=== PATIENT | female | born 1945 | race Caucasian/White ===

== ENCOUNTER 2016-03-27 17:49 | Inpatient (IN) | payer OTHER ==
[~2016-03-27] VITALS: Ht 162.6 cm; Wt 50.8 kg
--- NOTE | ~2016-03-27 | HC ---
[facility] [place] [address] CONSULTATION Name: HATTIE STRAUSS Room #: 450-[facility] IN M.R.#: [id number] Admission: 03/27/16 Attend Phys: Beck Hamm Discharge: 04/02/16 Date of : 43 Report #: [id number] THIS REPORT FOR: //name// CC: Trang Hamm DATE OF SERVICE: 03/28/2016 REASON FOR CONSULTATION: Exacerbation of COPD. IMPRESSION: 1. Acute on chronic respiratory failure. 2. Hypercapnic respiratory failure. 3. Tobacco abuse. 4. Elevated troponin. 5. Lactic acidosis. 6. Normocytic anemia. 7. Hyperglycemia. 8. Hyponatremia. 9. History of nausea, vomiting. PLAN: BiPAP, aerosol therapy, antibiotics, V/Q scan and echocardiogram, Cardiology consult per primary. HISTORY OF PRESENT ILLNESS: A 70-year-old female, saw Dr. Nicole on February 18 with severe COPD and solitary pulmonary nodule per note. At that time, FEV1 was 0.92, 39% predicted, FVC 1.8, 60% predicted. The patient relates she called Dr. Nicole and was prescribed a Z-GLADYS and prednisone, not improved. She relates she called the office yesterday and was told to go to the ER. She was transferred here and ordered to see him. She described transient chest tightness, cough, and no sputum production. Many family members were ill over the holidays. HOME MEDICATIONS: Include Mucinex, Biotin, multivitamin, aspirin, cyanocobalamin, zinc, potassium, tramadol, DuoNeb, Singulair, Reclast, Advil, folic acid, niacin, omeprazole, Ventolin. PAST MEDICAL HISTORY: COPD, urinary incontinence, hematuria, low back pain, osteoporosis, emphysema, solitary pulmonary nodule. PAST SURGICAL HISTORY: Include hysterectomy, cataract, laparoscopic cholecystectomy, appendectomy. FAMILY HISTORY: Heart disease, diabetes, throat cancer, lung cancer. SOCIAL HISTORY: Positive tobacco for greater than 40 years ETOH, negative [facility] [address] [place] [address] CONSULTATION Name: HATTIE STRAUSS ARINA Room #: [address] [place] [address] IN M.R.#: [id number] Admission: 03/27/16 Attend Phys: Beck Hamm Discharge: 04/02/16 Date of : 43 Report #: [id number] drugs of abuse. ALLERGIES: SULFA, FLU VACCINE, LATEX, GLUTEN, BUDESONIDE. REVIEW OF SYSTEMS: Positive for shortness of breath, cough. No edema. Not tolerating oxygen. Positive nausea, vomiting, GERD. PHYSICAL EXAMINATION: VITAL SIGNS: Temp 97.4, pulse 77, respirations 17, and blood pressure 136/73. EYES: Negative icterus. NECK: Trachea midline. LUNGS: Showed decreased breath sounds, wheeze bilaterally. CARDIOVASCULAR: Regular. Positive chest shin tenderness. ABDOMEN: Bowel sounds present. EXTREMITIES: Shows no cyanosis or edema. LABORATORY DATA: A pH 7.413, pCO2 of 43, pO2 of 94 on 3 L. Lactate 2.3. White count 8.8, hemoglobin 11.2, platelets 344. Chest x-ray showed possible fibrosis with bilateral infiltrates. BUN 13, creatinine 1.6, glucose 130. We will do CT chest once able to lie flat. V/Q showed abnormal ventilatory study. We will follow closely with you. <ELECTRONICALLY SIGNED> By: Vincenzo Gonzalez MD 04/03/16 1832 1710 0436 Vincenzo Gonzalez MD /nt
--- NOTE | ~2016-03-27 | 2DMMODE ---
[facility] [employer] [place] [address] 2 D/M-MODE ECHOCARDIOGRAM Name: HATTIE STRAUSS Room #: 450-P [facility] IN M.R.#: [id number] Admission: 03/27/16 Attend Phys: Beck Hummel Discharge: Date of : 43 Date of Service: 03/28/16 1048 Report #: [id number] THIS REPORT FOR: //name// Transthoracic Echocardiography Ordering physician: Vincenzo Gonzalez Referring physician: Vincenzo Gonzalez Janet Molding Machine Setter: LUIS Wilkerson Indications/History: COPD, Tobacco abuse, SOA, Pulmonary HTN. BP: 136 / HR: 82bpm Height: 64in Weight: 111.8lb 73 Study data: M-mode, complete 2D, complete spectral Doppler, and color Doppler. Location: Bedside. Routine. Image quality was fair. The study was technically limited due to restricted patient mobility. 2D measurements Normal Normal LVID ED 32.3mm 36-57 IVS ED 9.3mm 6-11 LVID ES 20.2mm 23-40 LVPW ED 8.6mm 6-11 LA volume 14ml/m2 16-28 AoRoot diam 26.5mm 21-37 index ED LVOT diameter 17mm 18-23 Findings: Left ventricle: The cavity size was normal. Wall thickness was normal. Systolic function was normal. The estimated ejection fraction was in the range of 60% to 65%. Wall motion was normal. Right ventricle: The cavity size was normal. Systolic function was normal. Right atrium: The atrium was normal in size. Left atrium: The atrium was normal in size. Volume index: 14ml/m2 (S). Aortic valve: Trileaflet; mildly calcified leaflets. Doppler: There was no stenosis. No regurgitation. [facility] [address] [place] [address] 2 D/M-MODE ECHOCARDIOGRAM Name: HATTIE STRAUSS Room #: [address] [place] [address] IN Jocelyn.R.#: [id number] Admission: 03/27/16 Attend Phys: Beck Hummel Discharge: Date of : 43 Date of Service: 03/28/16 1048 Report #: [id number] Peak velocity: 116.6cm/s (S). Mitral valve: Structurally normal valve. Doppler: There was no evidence for stenosis. No regurgitation. Peak E-wave velocity: 83.1cm/s. Peak gradient: 2.8mm Hg (D). Peak A-wave velocity: 91.8cm/s. Tricuspid valve: Structurally normal valve. Doppler: There was no evidence for stenosis. Trivial regurgitation. Regurgitant peak velocity: 251.4cm/s. Peak RV-RA gradient: 25mm Hg (S). Pulmonic valve: Structurally normal valve. Doppler: There was no evidence for stenosis. No regurgitation. Pericardium: There was no pericardial effusion. Aorta: Aortic root: The aortic root was normal in size. Pulmonary artery: Systolic pressure was estimated to be 30mm Hg. Diastolic function: Doppler parameters are consistent with abnormal left ventricular relaxation (grade 1 diastolic dysfunction). Systemic veins: Inferior vena cava: The vessel was normal in size; the respirophasic diameter changes were in the normal range (= 50%). Conclusions 1. Left ventricle: Systolic function was normal. The estimated ejection fraction was in the range of 60% to 65%. 2. Aortic valve: Trileaflet; mildly calcified leaflets. <ELECTRONICALLY SIGNED> By: Eliel Colindres MD, [facility] 03/28/16 1349 1048 1349 Eliel Colindres MD, FACC /toney
--- NOTE | ~2016-03-27 | H ---
[facility] [place] [address] HISTORY AND PHYSICAL Name: HATTIE STRAUSS Room #: 450-P [facility] IN M.R.#: [id number] Admission: 03/27/16 Attend Phys: Beck Hamm Discharge: 04/02/16 Date of : 43 Report #: [id number] THIS REPORT FOR: //name// CC: Trang Garg DATE OF SERVICE: 03/27/2016 ATTENDING PHYSICIAN: Alex Garg M.D. PRIMARY CARE PHYSICIAN: Trang Strong M.D. CHIEF COMPLAINT: Respiratory failure. HISTORY OF PRESENT ILLNESS: The patient is a 70-year-old female who has a history of COPD. She normally wears 3-4 liters at home p.r.n. She takes it off when she smokes, but says she does not tolerating wearing it at night, so she ends up having it off more than on throughout the day. She initially presented to [facility] on the evening of March 26 in respiratory distress. She apparently had oxygen saturations in the mid 80s. She had been having some cough and cold like symptoms for a few days. She was feeling congested. Her cough had been nonproductive. She was extremely short of breath and was placed on BiPAP. Initially, she had been prescribed a Z-Josém Iguel and prednisone and had failed these treatments. At [place], she received IV antibiotics and IV steroids and breathing treatments. Her chest x-ray was negative. She had requested to the staff that she would like to be transferred to [facility] where she can be seen by her primary adult basic studies teacher. She has never required intubation before. She does have some associated chest pain. She describes it as a tightness in her chest that is worse with coughing and deep breathing. She was exposed to some sick contacts over [place] in multiple family members. During the transfer to [facility], she was off BiPAP. She is tachypneic at this time and only able to speak in one-word sentences. PAST MEDICAL HISTORY: COPD, emphysema, celiac disease, osteoporosis and chronic back pain. PAST SURGICAL HISTORY: Cataract repair, hysterectomy, colon resection, appendectomy, cholecystectomy, cystocele and rectocele repair and cyst removal. ALLERGIES: IODINE CONTRAST CAUSES hives. She says she is able to have CTs done with premedications. She is also allergic to SULFA AND budesonide. HOME MEDICATIONS: DuoNebs q.i.d., Ventolin inhaler p.r.n., aspirin 81 mg daily, Motrin 600 mg q.8 hours p.r.n., Percocet 3/325 one tab q. 4 hours p.r.n., calcium with vitamin D 1 tab daily, potassium gluconate 500 mg daily, Zinc [address] [address] HISTORY AND PHYSICAL Name: HATTIE STRAUSS Room #: [facility] IN M.R.#: [id number] Admission: 03/27/16 Attend Phys: Beck Hamm Discharge: 04/02/16 Date of : 43 Report #: [id number] daily, vitamin B12 every 2 weeks, folic acid daily, biotin daily, multivitamin daily, Carafate 1 gram a.c. and at bedtime, omeprazole 20 mg daily. Most recently she had been on a Z-José Miguel as well as oral prednisone. She normally does not require daily steroids. SOCIAL HISTORY: The patient has been cutting back on her smoking. She is down to 1-2 cigarettes per day, previously she was smoking about a pack a week since 1974. She is exposed to a large amount of secondhand smoke in the home currently as her spouse still smokes up to 2 packs of cigarettes per day in the home. She denies any drugs or alcohol use. She ambulates independently. FAMILY HISTORY: Her mother is alive with a history of heart disease. Her father from heart disease. REVIEW OF SYSTEMS: The patient states that a few months ago she started having recurrent episodes of nausea with vomiting. She does feel that after eating at times, she gets really bloated and distended. She was started on Carafate and omeprazole. She states that they do seem to help. She has not had a prior EGD. All other 12-point review of systems was reviewed with the patient, otherwise negative unless stated in the HPI. PHYSICAL EXAMINATION: GENERAL: The patient is an alert female in mild respiratory distress. VITAL SIGNS: Temperature is 36.3, heart rate 99, respirations 28, blood pressure is 147/58 and oxygen 93% on 4 liters O2. HEENT: PERRLA. Sclerae are nonicteric. Oral mucosa is pink and moist. NECK: Supple, no JVD noted. CARDIOVASCULAR: Normal S1 and S2. No murmurs, rubs or gallops. RESPIRATORY: Breath sounds, she does have extensive expiratory wheezing and rhonchi with rales bilaterally. Breathing is labored. She is tachypneic. She is only able to speak in one-word sentences. She does have a very loose, but nonproductive cough which is harsh. ABDOMEN: Soft. She has mild tenderness in the epigastric and right upper quadrant areas. Bowel sounds are hypoactive. VASCULAR: No edema noted. Pedal pulses are 2+. NEUROLOGIC: The patient is alert and oriented x 3. Speech is clear. She is moving all extremities equally. No focal weakness noted. LABORATORY DATA AND DIAGNOSTICS: Blood work done today at [place] shows a WBC of 5.7, hemoglobin 12 and platelets 409. Sodium 136, potassium 4.0, BUN 13, creatinine 0.7 and glucose is 152. LFTs are within normal limits. EKG was showing sinus rhythm. Chest x-ray is negative. Influenza was negative. ASSESSMENT AND PLAN: 1. Qbzht-bt-qcmnwmg respiratory failure. The patient had been on BiPAP at [place]. We will check an ABG since she has been off the BiPAP during the [facility] [place] [address] HISTORY AND PHYSICAL Name: HATTIE STRAUSS ARINA Room #: [address] [place] [address] IN M.R.#: [id number] Admission: 03/27/16 Attend Phys: Beck Hamm Discharge: 04/02/16 Date of : 43 Report #: [id number] transfer, and then since her breathing is still labored, we will resume BiPAP. Pulmonary is consulted. Continue with IV steroids and scheduled breathing treatments. We will add mucolytics and Tussionex. We will continue with empiric antibiotics. She is currently afebrile without leukocytosis. We will try to obtain a sputum culture and a respiratory viral panel. 2. Ongoing tobacco abuse. The patient says she is cutting back. She has been advised to quit. She denies a need for a nicotine patch. 3. Recent nausea, vomiting and abdominal bloated. We will resume Carafate and PPI as at home. If her symptoms persist, we may eventually need to have GI evaluate as she says she has not yet been to see a museum assistant. She will likely not be able to have any EGD done until her breathing status improve. 4. Deep vein thrombosis prophylaxis. Start Lovenox. We will continue to follow the patient closely throughout the hospitalization and make changes based on clinical status. <ELECTRONICALLY SIGNED> By: EVERETT Weaver 04/04/16 0646 0343 0511 EVERETT Weaver /nt
--- NOTE | ~2016-03-27 | EKG ---
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 04/01/16 0804 1216 1216 Nathanael Aaron MD, FACC /EPI
[~2016-03-27 17:49] MED LIST: ASPIRIN81 M2 PO; B12INJ IM; BIOTIN PO; BIOTIN2500 MCG PO; CALCIUM 500+D1 EAC2 PO; CULTURELLE1 EACH PO; FOLIC ACID 40400 MC1 PO; FOLIC ACID PO; GLUCOSAMINE &1 EAC1 PO; HYDROCODON-ACE1 EAC5 PO; IBUPROFEN 600600 M1 PO; MULTI VITAMIN1 EACH PO; NORCO 10-325 T1 EACH PO; POTASSIUM GLUC500 MG PO; POTASSIUM OTC PO; SENNA PO; SYMBICORT160 MCG/4. INH; VENTOLIN HFA INH8 GM INH; VITAMINE B12 SUBQ; ZINC50 M1 PO; ZOFRAN ODT8 MG PO
[2016-03-27 19:31] VITALS: BP 147/58
[2016-03-27] MEDS ORDERED: DUONEB 2.5-0.5 M3 ML INH (20:24)
[2016-03-27] MEDS ORDERED: CARAFATE1 GM (20:24)
[2016-03-27 23:20] LABS: ABG SAMPLE TYPE ARTERIAL; LACTATE 2.27 mmol/L (0.5-2.0); O2(CT) 17.8 mL/dL (15.0-23.0); O2Hb 96.7 % (92.0-98.0); PCO2 43.2 mmHg (35.0-45.0); PO2 94.3 mmHg (80.0-100.0); pH 7.413 (7.360-7.450); sO2 97.3 % (92.0-98.0); tCO2 28.3 mmol/L (24.0-30.0)
[2016-03-27 23:21] LABS: STICK SITE RRA
[2016-03-28 00:04] VITALS: BP 128/69
[2016-03-28 05:27] LABS: HEMATOCRIT 33.9 % (37.0-47.0); HEMOGLOBIN 11.2 gm/dL (12.0-15.0); MCH 26.9 pg (26.0-34.0); MCV 81.5 fL (80.0-100.0); RBC 4.16 mil/uL (4.20-5.00); RDW 16.7 % (10.5-14.5); WBC 8.8 thou/uL (4.0-11.0)
[2016-03-28 05:51] LABS: ALBUMIN 3.4 g/dL (3.4-5.0); CALCIUM 8.8 mg/dL (8.5-10.1); CREATININE 0.6 mg/dL (0.6-1.3); MAGNESIUM 2.2 mg/dL (1.8-2.4); POTASSIUM 4.8 mmol/L (3.5-5.1); TOTAL BILIRUBIN 0.2 mg/dL (<0.1-1.0); TOTAL PROTEIN 6.6 g/dL (6.4-8.2)
[2016-03-28 06:20] LABS: TROPONIN-I 0.19 ng/mL (<0.04-0.07)
[2016-03-28 07:06] VITALS: BP 136/73
[2016-03-28 11:27] VITALS: BP 129/69
[2016-03-28 12:12] LABS: ABG SAMPLE TYPE ARTERIAL; BE(vivo) 3.7 mmol/L (-2 to +3); HCO3 29.3 mmol/L (22.0-26.0); LACTATE 2.71 mmol/L (0.5-2.0); O2(CT) 16.4 mL/dL (15.0-23.0); O2Hb 93.4 % (92.0-98.0); PCO2 48.3 mmHg (35.0-45.0); PO2 70.4 mmHg (80.0-100.0); pH 7.401 (7.360-7.450); tCO2 30.8 mmol/L (24.0-30.0)
[2016-03-28 12:13] LABS: STICK SITE L.BRACHIAL
[2016-03-28 15:15] VITALS: BP 129/76
[2016-03-28 20:00] VITALS: BP 107/65
[2016-03-29 04:40] VITALS: BP 127/72
[2016-03-29 07:10] VITALS: BP 123/71
[2016-03-29 11:11] VITALS: BP 124/72
[2016-03-29 15:20] VITALS: BP 144/79
[2016-03-29 19:08] VITALS: BP 113/63
[2016-03-30 04:56] VITALS: BP 116/51
[2016-03-30 05:43] LABS: HEMOGLOBIN 11.4 gm/dL (12.0-15.0); MCH 26.5 pg (26.0-34.0); MCHC 32.5 % (28.0-37.0); MCV 81.6 fL (80.0-100.0); RBC 4.29 mil/uL (4.20-5.00); RDW 16.8 % (10.5-14.5); WBC 8.6 thou/uL (4.0-11.0)
[2016-03-30 05:51] LABS: CALCIUM 8.3 mg/dL (8.5-10.1); CREATININE 0.6 mg/dL (0.6-1.3); POTASSIUM 4.5 mmol/L (3.5-5.1)
[2016-03-30 12:30] VITALS: BP 113/74
[2016-03-30 15:45] VITALS: BP 162/86
[2016-03-30 19:08] VITALS: BP 123/66
[2016-03-31 03:59] VITALS: BP 125/68
[2016-03-31 07:01] VITALS: BP 119/72
[2016-03-31 08:00] VITALS: BP 130/74
[2016-03-31 12:04] VITALS: BP 130/74
[2016-03-31 16:32] VITALS: BP 126/75
[2016-03-31 19:50] VITALS: BP 131/76
[2016-04-01 03:30] VITALS: BP 115/65
[2016-04-01 09:04] VITALS: BP 124/63
[2016-04-01 11:50] VITALS: BP 97/50
[2016-04-01 16:19] VITALS: BP 131/61
[2016-04-01 19:46] VITALS: BP 125/54
[2016-04-01 22:06] LABS: INFLUENZA B Negative (Negative); METAPNEUMOVIRUS Negative (Negative)
[2016-04-02 03:39] VITALS: BP 107/66
[2016-04-02 05:43] LABS: HEMOGLOBIN 12.5 gm/dL (12.0-15.0); MCHC 32.1 % (28.0-37.0); MCV 80.9 fL (80.0-100.0); RBC 4.81 mil/uL (4.20-5.00); RDW 16.6 % (10.5-14.5); WBC 8.4 thou/uL (4.0-11.0)
[2016-04-02 06:01] LABS: ALBUMIN 3.3 g/dL (3.4-5.0); CALCIUM 8.8 mg/dL (8.5-10.1); CREATININE 0.8 mg/dL (0.6-1.3); MAGNESIUM 2.1 mg/dL (1.8-2.4); PHOSPHORUS 4.8 mg/dL (2.5-4.9)
[2016-04-02 07:43] LABS: ABG SAMPLE TYPE ARTERIAL; BE(vivo) 4.7 mmol/L (-2 to +3); HCO3 28.8 mmol/L (22.0-26.0); LACTATE 2.82 mmol/L (0.5-2.0); O2Hb 95.1 % (92.0-98.0); PCO2 41.2 mmHg (35.0-45.0); PO2 78.3 mmHg (80.0-100.0); STICK SITE R.RADIAL; pH 7.463 (7.360-7.450); sO2 96.2 % (92.0-98.0); tCO2 30.1 mmol/L (24.0-30.0)
[2016-04-02 07:52] VITALS: BP 111/56
[2016-04-02] MEDS ORDERED: MUCINEX DM TABL1 TA1 PO (11:47)
[2016-04-02] MEDS ORDERED: PREDNISONE 10 M10 MG PO (11:49)
[2016-04-02 13:00] VITALS: BP 111/56
[2016-04-02 13:37] VITALS: BP 115/62
== END 2016-04-02 13:41 | disposition home or self-care (01) | DRG 189 ==
LOC: 4E 17:49 → 4W 19:21
PROVIDERS: Hospitalist; Internal Medicine Pulmonary Disease; Nurse Practitioner Acute Care
PROC: 5A09357 Assistance with Respiratory Ventilation, Less than 24 Consecutive Hours, Continuous Positive Airway Pressure (ICD-10-PCS; principal; 2016-03-29)
DX: J96.21 Acute and chronic respiratory failure with hypoxia (principal); J44.1 Chronic obstructive pulmonary disease with (acute) exacerbation; E87.1 Hypo-osmolality and hyponatremia; E87.2 Acidosis; J44.0 Chronic obstructive pulmonary disease with (acute) lower respiratory infection; F17.200 Nicotine dependence, unspecified, uncomplicated; J96.22 Acute and chronic respiratory failure with hypercapnia; D64.9 Anemia, unspecified; R32 Unspecified urinary incontinence; M81.0 Age-related osteoporosis without current pathological fracture; R73.9 Hyperglycemia, unspecified; G89.29 Other chronic pain; J84.10 Pulmonary fibrosis, unspecified; M54.9 Dorsalgia, unspecified; J20.9 Acute bronchitis, unspecified; Z88.2 Allergy status to sulfonamides; Z90.710 Acquired absence of both cervix and uterus; Z98.49 Cataract extraction status, unspecified eye; Z90.49 Acquired absence of other specified parts of digestive tract; Z98.890 Other specified postprocedural states; Z82.49 Family history of ischemic heart disease and other diseases of the circulatory system; Z83.3 Family history of diabetes mellitus; Z91.041 Radiographic dye allergy status; Z80.1 Family history of malignant neoplasm of trachea, bronchus and lung; Z80.8 Family history of malignant neoplasm of other organs or systems; Z88.7 Allergy status to serum and vaccine; Z91.040 Latex allergy status; Z88.8 Allergy status to other drugs, medicaments and biological substances; Z79.899 Other long term (current) drug therapy; Z79.82 Long term (current) use of aspirin
CPT/HCPCS: 10045

== ENCOUNTER 2019-06-07 13:35 | Inpatient (IN) | payer OTHER ==
[~2019-06-07] VITALS: Ht 162.6 cm; Wt 58.9 kg
[~2019-06-07 13:35] MED LIST changes: +CARAFATE1 GM; +DUONEB 2.5-0.5 M3 ML INH; +MUCINEX DM TABL1 TA1 PO; +PREDNISONE 10 M10 MG PO
[2019-06-07 22:14] VITALS: BP 145/76
[2019-06-07 22:15] VITALS: BP 148/83
[2019-06-07 22:30] VITALS: BP 148/81
[2019-06-07 22:45] VITALS: BP 126/74
[2019-06-07 22:45] LABS: BE(vivo) 1.4 mmol/L (-2 to +3); PCO2 36.3 mmHg (35.0-45.0); PO2 89.6 mmHg (80.0-100.0); pH 7.456 (7.360-7.450); sO2 97.3 % (92.0-98.0)
[2019-06-07 23:00] VITALS: BP 136/108
[2019-06-08] VITALS (21 sets, daily range): BP systolic 108–170; BP diastolic 47–93
--- NOTE | 2019-06-08 02:10 | NUR ---
RECEIVED PT DIRECT ADMIT TO ICU 243. PT TRANSPORTED VIA EMS, ON 6LNC. 02SAT 94. PT STILL FEELS SOA, USING ACCESSORY MUSCLES TO BREATH. CONGESTED COUGH, NOT PRODUCTIVE. PLACED ON OPTIFLOW, ABGS DONE AND CALLED TO DR ARGUELLES. PT STATES BREATHING IS MORE COMFORTABLE NOW. LS-WHEEZES, AND DIMINISHED ASHA LT LOBE. NOTIFIED MANAGER STONE OF DIRECT ADMISSION, AWAITING ORDERS
[2019-06-08] MEDS ORDERED: CARAFATE 1 GM TA1 GM PO (03:12)
[2019-06-08] MEDS ORDERED: FOLIC ACID1 MG PO (03:15)
[2019-06-08] MEDS ORDERED: NIACIN 500 MG500 M1 PO (03:18)
[2019-06-08] MEDS ORDERED: ZINC50 MG PO (03:19)
[2019-06-08] MEDS ORDERED: OMEPRAZOLE 20 M20 M1 PO (03:19)
[2019-06-08] MEDS ORDERED: TESSALON PERLE100 M1 PO (03:20)
[2019-06-08] MEDS ORDERED: BEVESPI AEROS10.7 GM PO (03:21)
[2019-06-08] MEDS ORDERED: VENTOLIN HFA 1818 GM INH (03:23)
[2019-06-08 04:36] LABS: HEMATOCRIT 36.9 % (37.0-47.0); HEMOGLOBIN 11.9 gm/dL (12.0-15.0); MCH 28.4 pg (26.0-34.0); MCHC 32.2 g/dL (28.0-37.0); MCV 88.2 fL (80.0-100.0); RBC 4.19 mil/uL (4.20-5.00); RDW 15.8 % (10.5-14.5); WBC 13.9 thou/uL (4.0-11.0)
[2019-06-08 04:46] LABS: ALBUMIN 3.1 g/dL (3.4-5.0); CALCIUM 8.4 mg/dL (8.5-10.1); CREATININE 0.8 mg/dL (0.6-1.0); POTASSIUM 4.4 mmol/L (3.5-5.1); TOTAL BILIRUBIN 0.3 mg/dL (<0.1-1.0); TOTAL PROTEIN 6.4 g/dL (6.4-8.2)
--- NOTE | 2019-06-08 06:42 | NUR ---
RECIEVED REPORT FROM FABI PAZ. PT AOX4. VSS. AFEBRILE. ON 45L AND 50% FIO2 OPTIFLOW, TOLERATING OXYGEN. NEGATIVE FOR FLU. MRSA SWAB SENT TO LAB. UP WITH MINIMAL ASSIST TO BSC. WILL CONTINUE TO MONITOR.
--- NOTE | 2019-06-08 10:45 | NUR ---
VASCULAR ACCESS CONSULTED FOR PICC DUE TO MULTIPLE ABX AND POOR PIV ACCESS. PT'S LABS,MEDS,HISTORY,ORDER AND CONSENT VERIFIED. DISCUSSED BENEFITS AND RISKS OF PICC WITH PT AND SPOUSE,VERBALIZED UNDERSTANDING. LUNA ENGLISH WAS WIDELY PATENT WITH USG. 4FR DL POWER PICC REIMMED TO 39CM INSERTED TO 3CM EXTERNAL. STAT CXR ORDERED. PT TOLERATED WELL.
--- NOTE | 2019-06-08 10:47 | NUR ---
PICC LINE INSERTED, X-RAY DONE AND AWAITING PLACEMENT TO UTILIZE LINE. BEDSIDE CARDIAC ECHO IN PROGRESS.
--- NOTE | 2019-06-08 10:53 | NUR ---
CXR CONFIRMED PLACEMENT IN LOWER SVC, PICC RELEASED FOR IMMEDIATE USE PER PROTOCOL TO GRACE PAZ
--- NOTE | 2019-06-08 12:14 | NUR ---
Case opened to follow for dc planning. Chart reviewed and discussed with the care team. Pt is currently in ICU on highflow O2 due to acute hypoxic resp failure/COPD exac. Diesel Inspector visited with the pt and her spouse Mauro who is at bedside. The pt indicates that they live in an one story home with a ramp about 5 miles outside of [place], [place]. She normally uses home o2 per [employer] for noc use and occasional PRN use at 2litersnc. She is indep with gait and adl's as well as iadl's. Her pcp is Dr. Zakia Malagon in [place]. She was transfered from [facility] due to worsening pulm status. She has been there approx one week. They are familiar with hh and receptive if needed at dc. Cm role introduced. PT and OT evals are pending. Will follow along for possible hh referral at dc.
--- NOTE | 2019-06-08 14:48 | 2DMMODE ---
[facility] [place] [address] 2 D/M-MODE ECHOCARDIOGRAM Name: HATTIE STRAUSS ARINA Room #: 243-P ADM IN M.R.#: [id number] Admission: 06/07/19 Attend Phys: Jerome Gomez MD Discharge: Date of : 43 Report #: [id number] THIS REPORT FOR: cc: Zakia Malagon Elizabeth DO Lundgren, Craig H. MD [facility] ~ APPROVED REPORT Study performed: 06/08/2019 10:44:59 EXAM: Comprehensive 2D, Doppler, and color-flow Echocardiogram Patient Location: ICU Room #: 243 Status: routine BSA: 1.60 HR: 83 bpm BP: 146/77 mmHg Rhythm: NSR Other Information Study Quality: Adequate Indications COPD Dyspnea 2D Dimensions RVDd: 29.80 mm IVC: 17.00 mm Volumes Left Atrial Volume (Systole) Single Plane 4CH: 26.40 mL Single Plane 2CH: 23.52 mL LA ESV Index: 16.00 mL/m2 Aortic Valve AoV Peak Vipul.: 1.21 m/s AO Peak Gr.: 5.82 mmHg LVOT Max P.69 mmHg LVOT Max V: 1.08 m/s Mitral Valve E/A Ratio: 0.9 MV Decel. Time: 198.62 ms MV E Max Vipul.: 0.86 m/s [facility] [address] [place] [address] 2 D/M-MODE ECHOCARDIOGRAM Name: HATTIE STRAUSS Room #: 243-P ADM IN M.R.#: [id number] Admission: 06/07/19 Attend Phys: Jerome Goemz MD Discharge: Date of : 43 Report #: [id number] A Vipul.: 0.94 m/s MV PHT: 57.60 ms IVRT: 96.89 ms Pulmonary Valve PV Peak Vipul.: 0.84 m/s PV Peak Gr.: 2.85 mmHg Pulmonary Vein P Vein S: 0.60 m/s P Vein A: 0.29 m/s P Vein D: 0.44 m/s P Vein A Dur.: 106.1 msec P Vein S/D Ratio: 1.36 Left Ventricle The left ventricle is normal size. There is normal LV segmental wall motion. There is normal left ventricular wall thickness. Left ventricular systolic function is normal. The left ventricular ejection fraction is within the normal range. LVEF is 60-65%. Mild diastolic dysfunction is present (impaired relaxation pattern). Right Ventricle The right ventricle is normal size. The right ventricular systolic function is normal. Atria The left atrium size is normal. The right atrium size is normal. Aortic Valve The aortic valve is normal in structure. No aortic regurgitation is present. There is no aortic valvular stenosis. Mitral Valve The mitral valve is normal in structure. There is no mitral valve regurgitation noted. No evidence of mitral valve stenosis. Tricuspid Valve The tricuspid valve is normal in structure. There is no tricuspid valve regurgitation noted. Pulmonic Valve The pulmonary valve is normal in structure. There is no pulmonic valvular regurgitation. Great Vessels The aortic root is normal in size. IVC is normal in size and [facility] [address] [place] [address] 2 D/M-MODE ECHOCARDIOGRAM Name: HATTIE STRAUSS Room #: [facility] IN [facility]#: [id number] Admission: 06/07/19 Attend Phys: Jerome Gomez MD Discharge: Date of : 43 Report #: [id number] collapses >50% with inspiration. Pericardium There is no pericardial effusion. <Conclusion> Left ventricular systolic function is normal. There is normal LV segmental wall motion. LVEF is 60-65%. Mild diastolic dysfunction The aortic valve is normal in structure. No aortic regurgitation or stenosis The mitral valve is normal in structure. No mitral valve regurgitation. Pulmonary artery systolic pressure could not be reliably ascertained There is no pericardial effusion. <ELECTRONICALLY SIGNED> By: Nathanael Aaron MD, [facility] 06/08/19 1446 1446 1446 Nathanael Aaron MD, FACC /INF
--- NOTE | 2019-06-08 18:14 | NUR ---
O2 weaned to 3l/high flow nasal cannula, able to speak in complete sentences. Standby assist to commode. Reassurance given to and , questions answered, verbalize understanding.
[2019-06-09] VITALS (24 sets, daily range): BP systolic 113–148; BP diastolic 64–93
--- NOTE | 2019-06-09 10:05 | NUR ---
ALERT AND ORIENTED AND DENIES PAIN. VITALS STABLE AND TOLERATING DIET W/O NAUSEA. UP TO CHAIR WITH STANDBY ASSIST. USING BSC WITHOUT DIFFICULTY. ORDERS RECEIVED TO TRANSFER TO [facility].
[2019-06-10] VITALS (7 sets, daily range): BP systolic 100–150; BP diastolic 64–92
[2019-06-10 04:35] LABS: HEMATOCRIT 35.9 % (37.0-47.0); HEMOGLOBIN 12.1 gm/dL (12.0-15.0); MCH 29.4 pg (26.0-34.0); MCHC 33.5 g/dL (28.0-37.0); MCV 87.7 fL (80.0-100.0); RBC 4.1 mil/uL (4.20-5.00); RDW 15.8 % (10.5-14.5); WBC 10.3 thou/uL (4.0-11.0)
[2019-06-10 04:44] LABS: CALCIUM 7.8 mg/dL (8.5-10.1); CREATININE 0.9 mg/dL (0.6-1.0); POTASSIUM 4.1 mmol/L (3.5-5.1)
--- NOTE | 2019-06-10 05:38 | NUR ---
PATIENT ALERT AND ORIENTED X4, PAIN CONTROLLED WITH MEDICATION. PATIENT'S OXYGEN WEANED DOWN OVER NIGHT FROM 5L TO 4L HIGHFLOW NASAL CANNULA. PATIENT TRANSFERRED TO [facility] WITH STANDBY ASSISTANCE, NO SHORTNESS OF BREATH NOTED. PLAN DISCUSSED WITH PATIENT, PATIENT PROGRESSING TOWARDS GOALS. NO SIGN OF ACUTE DISTRESS NOTED AT THIS TIME. WILL CONTINUE TO MONITOR.
--- NOTE | 2019-06-10 08:20 | NUR ---
pt up in bed, eyes open, a & o x 3, pleasant, on o2 per nasal canula. no complaints during visit. education on transition of care, ie: skilled and home health. " oh no i will not need rehab that would be to hard on my and will do hh if needed but if just get out of bed i should not need home health either. i do what to add some updates to my health care directive"/jonn. education on dpoa booklet and education that spiritual care and notarize if witnessed here. "ok thanks"/jonn.
--- NOTE | 2019-06-10 17:38 | NUR ---
PT RECEIVED TO RM 218 FROM ICU ALERT AND IN NO ACUTE DISTRESS. PT PREFERRING TO SIT UP IN THE CHAIR. STATES FEELS MUCH BETTER SINCE ADMISSION. RESP EVEN AND UNLABORED ON 4L NC. AMBULATED TO BR W/ STEADY GAIT TO VOID. CONJESTED NON-PRODUCTIVE COUGH. EATING DINNER AT PRESENT.
[2019-06-11 00:35] VITALS: BP 115/59
--- NOTE | 2019-06-11 04:24 | NUR ---
RECIEVED CARE OF THIS PATIENT AT 1900. PATIENT ALERT AND ORIENTED X4. UP WITH SBA, STEADY ON FEET BUT DOES CALL WHEN NEEDING UP. HAS NON-PRODUCTIVE CONGESTED COUGH. AT THE BEGINNING OF SHIFT LUNGS WERE DIM AT BASES AND HAD WHEEZES ON TOP. NOW THEY ARE CLER. HAS DOUBLE LUMAN PICC IN LUNA AND A PIV IN HER L HAND. C/O PAIN IN BACK OF 2. SLEPT OFF AND ON DURING NIGHT.
[2019-06-11 04:45] VITALS: BP 120/62
--- NOTE | 2019-06-11 05:02 | NUR ---
RECIEVED CARE OF THIS PATIENT AT 1900. PATIENT ALERT AND ORIENTED X4. TANACROSS. HEARS ONLY IN L EAR. REMAINS IN ISO FOR ESBL. BOTTOM RED, Z-GATERESITAD APPLIED. REMAINS ON BEDREST. IV IN RAC PATENT OF NS AND FENTANYL DRIP, WHICH KEEPS PATIENT COMFORTABLE. HAS 2 PIVS IN LFA, ON IS A SINGLE LUMEN AND ONE IS A DOUBLE. PATIENT HAS SLEPT LITTLE THIS SHIFT. DOES NOT LIKE TO LAY ON R SIDE OR BACK.
[2019-06-11 08:00] VITALS: BP 121/67
[2019-06-11 16:00] VITALS: BP 114/62
--- NOTE | 2019-06-11 16:34 | NUR ---
PT ALERT AND ORIENTED. DENIED HAVING PAIN OR DISCOMFORT. RT TREATMENT GIVEN ORDERED. NO CARDIAC OR RESPIRATORY DISTRESS NOTED. PT PROGRESSING WELL TOWARDS DISCHARGE GOAL. WILL CONTINUE TO MONITOR.
[2019-06-11 20:33] VITALS: BP 105/59
--- NOTE | 2019-06-12 03:23 | NUR ---
Patient making progress towards outcome goals. Oxygenation optimal with 2L o2 per NC. Vital signs and rhythm stable. High fall risks, fall precautions in place.
--- NOTE | 2019-06-12 03:29 | NUR ---
Fall risks adjusted to Low. Careplan updated.
[2019-06-12 04:45] VITALS: BP 133/70
[2019-06-12 08:56] VITALS: BP 113/70
[2019-06-12] MEDS ORDERED: LEVAQUIN 750 M750 MG PO (14:19)
[2019-06-12] MEDS ORDERED: MUCINEX600 MG PO (14:20)
[2019-06-12] MEDS ORDERED: PREDNISONE 10 M10 M1 PO (14:20)
[2019-06-12 15:05] VITALS: BP 113/70
--- NOTE | 2019-06-12 15:21 | NUR ---
ASSESSMENT CHARTED. PT ALERT AND ORIENTED. VSS. DENIED HAVING PAIN OR DISCOMFORT. RT TREATMENT PROVIDED ORDERED. SEEN BY DR. ARGUELLES AND CHAPARRO. ORDERS GIVEN TO DISCHARGE PT TO HOME. DISCHARGE INSTRUCTIONS GIVEN TO PT. PT VERBERLISED UNDERSTANDING. PT LEFT THE FACILITY ACCOMPANIED BY THE .
== END 2019-06-12 16:23 | disposition home or self-care (01) | DRG 177 ==
LOC: ICU 13:35 → 2N 06-10 16:30
PROVIDERS: Hospitalist; Nurse Practitioner Family; ADMIT Hospitalist
PROC: B548ZZA Ultrasonography of Superior Vena Cava, Guidance (ICD-10-PCS; principal; 2019-06-08)
PROC: 02HV33Z Insertion of Infusion Device into Superior Vena Cava, Percutaneous Approach (ICD-10-PCS; principal; 2019-06-08)
DX: J69.0 Pneumonitis due to inhalation of food and vomit (principal); J96.21 Acute and chronic respiratory failure with hypoxia; J96.22 Acute and chronic respiratory failure with hypercapnia; J44.0 Chronic obstructive pulmonary disease with (acute) lower respiratory infection; J44.1 Chronic obstructive pulmonary disease with (acute) exacerbation; J20.9 Acute bronchitis, unspecified; R91.1 Solitary pulmonary nodule; K90.0 Celiac disease; M19.90 Unspecified osteoarthritis, unspecified site; Z88.2 Allergy status to sulfonamides; Z88.8 Allergy status to other drugs, medicaments and biological substances; Z91.041 Radiographic dye allergy status; Z91.040 Latex allergy status; Z98.42 Cataract extraction status, left eye; Z98.41 Cataract extraction status, right eye; Z90.710 Acquired absence of both cervix and uterus; Z90.49 Acquired absence of other specified parts of digestive tract; Z82.49 Family history of ischemic heart disease and other diseases of the circulatory system; Z80.1 Family history of malignant neoplasm of trachea, bronchus and lung; Z80.0 Family history of malignant neoplasm of digestive organs; Z80.8 Family history of malignant neoplasm of other organs or systems; Z83.3 Family history of diabetes mellitus; Z87.891 Personal history of nicotine dependence; Z71.6 Tobacco abuse counseling; Z79.82 Long term (current) use of aspirin; Z79.899 Other long term (current) drug therapy
CPT/HCPCS: 10078; 10081; 10203; 27000

== ENCOUNTER 2019-09-22 14:44 | Inpatient (IN) | payer OTHER ==
[~2019-09-22] VITALS: Ht 162.6 cm; Wt 58.5 kg
[~2019-09-22 14:44] MED LIST changes: -AUGMENTIN 875-1 EACH PO; -DELSYM COU30 MG/5 ML PO; -IPRAT-ALBUT 0.5-3 ML INH; -PULMICORT0.5 MG/22 INH; -YUPELRI175 MCG/3 INH
[2019-09-22 14:49] VITALS: BP 101/77
[2019-09-22] MEDS ORDERED: YUPELRI175 MCG/3 INH (15:07)
[2019-09-22 15:30] LABS: BASOPHILS 0.9 % (0.0-2.0); EOSINOPHILS 2.1 % (0.0-3.0); HEMATOCRIT 39.7 % (37.0-47.0); HEMOGLOBIN 13.5 gm/dL (12.0-15.0); MCH 31.3 pg (26.0-34.0); MCHC 34.1 g/dL (28.0-37.0); MCV 91.7 fL (80.0-100.0); MONOCYTES 7.5 % (1.0-8.0); PLATELET COUNT 476 thou/uL (150-400); POLYS 70.5 % (36.0-66.0); RBC 4.33 mil/uL (4.20-5.00); WBC 7.1 thou/uL (4.0-11.0)
[2019-09-22 15:40] LABS: ANION GAP 15 mmol/L (7-16); BUN 6 mg/dL (7-18); CHLORIDE 99 mmol/L (98-107); CO2 19 mmol/L (21-32); CREATININE 0.6 mg/dL (0.6-1.0); GLUCOSE 92 mg/dL (74-106); POTASSIUM 4.6 mmol/L (3.5-5.1); SODIUM 133 mmol/L (136-145)
[2019-09-22 15:46] LABS: ALBUMIN 3.5 g/dL (3.4-5.0); DIRECT BILIRUBIN < 0.1 mg/dL (<0.1-0.2); SGOT 38 U/L (15-37); SGPT 36 U/L (30-65); TOTAL BILIRUBIN 0.3 mg/dL (0.2-1.0); TOTAL PROTEIN 7.7 g/dL (6.4-8.2)
[2019-09-22 17:09] LABS: BE(vivo) -0.9 mmol/L (-2 to +3); HCO3 22.5 mmol/L (22.0-26.0); PCO2 33.4 mmHg (35.0-45.0); PO2 95.9 mmHg (80.0-100.0); pH 7.446 (7.360-7.450); sO2 97.6 % (92.0-98.0)
[2019-09-22 18:47] VITALS: BP 132/104
[2019-09-22 19:30] VITALS: BP 133/77
[2019-09-22 19:39] VITALS: BP 122/75
[2019-09-22 23:11] VITALS: BP 123/67
--- NOTE | 2019-09-23 03:01 | NUR ---
Admission history and assessments completed. Care plan initiated.
[2019-09-23 03:18] VITALS: BP 122/69
--- NOTE | 2019-09-23 05:37 | NUR ---
Patient making progress towards outcome goals. Oxygenation optimal with 3L/NC continuous pulse ox at 95-96%. Afebrile. Vital signs and rhythm stable.. Up adlib, short of air withactivity but gait stable. Enhance precautions maintained, COVID test done 09/22/19 negative.
[2019-09-23 05:41] LABS: ABSOLUTE NEUTROPHILS 5.1 thou/uL (1.4-8.2); BASOPHILS 0.1 % (0.0-2.0); HEMATOCRIT 37.9 % (37.0-47.0); HEMOGLOBIN 12.8 gm/dL (12.0-15.0); LYMPHOCYTES 7.7 % (24.0-44.0); MCH 30.6 pg (26.0-34.0); MCHC 33.8 g/dL (28.0-37.0); MCV 90.6 fL (80.0-100.0); MONOCYTES 0.6 % (1.0-8.0); POLYS 91.6 % (36.0-66.0); RBC 4.18 mil/uL (4.20-5.00); RDW 15.6 % (10.5-14.5); WBC 5.5 thou/uL (4.0-11.0)
[2019-09-23 05:58] LABS: CALCIUM 8.6 mg/dL (8.5-10.1); CREATININE 0.7 mg/dL (0.6-1.0)
[2019-09-23 06:09] LABS: POTASSIUM 3.6 mmol/L (3.5-5.1)
[2019-09-23 06:12] LABS: PLATELET COUNT 328 thou/uL (150-400)
[2019-09-23 07:34] VITALS: BP 138/68
--- NOTE | 2019-09-23 12:02 | NUR ---
AFEBRILE. VOICING NO COMPLAINTS. ON 3L NC - SOA W/ EXERTION. VITALS STABLE. FREQUENT COUGHING FITS. C19 RESULT NEGATIVE - HOSPITALIST NOTIFIED. ENHANCED PRECAUTIONS IN PLACE.
--- NOTE | 2019-09-23 13:38 | NUR ---
INITIAL ASSESSMENT: Received consult. SOFIA reviewed chart and spoke with nursing and attending physician. Pt was admitted from home due to exacerbation of COPD. Pt is in Enhanced Isolation. First COVID test is negative. SOFIA spoke with pt via phone. Introduced role of SW. Pt is alert/orientated x 4. Pt reports she lives at home with her spouse in [place], [place]. Prior to admission, pt was independent with ADLs. No use of DME for ambulation. Pt is on 2.5-3L of continuous O2 at home. Home O2 provided by [facility]. No hx of services or post-acute placement. Pt's PCP is Dr. Zakia Malagon in [place]. 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 Pt asked for SW to assist if possible. SOFIA spoke with Claudio from [facility], who states pt would qualify for the portable concentrator, but she would not be able to also have portable tanks. [facility] liaison to to reach out to pt to explain and discuss. Pt can have 6 minute walking test at the [facility] office to evaluate her for portable concentrator. Pt's O2 needs cannot exceed 5L, as that is the maximum amount of O2 the concentrator provides. No discharge needs identified at this time. SOFIA is following to assist as needed.
[2019-09-23 15:26] VITALS: BP 128/62
[2019-09-23 15:40] VITALS: BP 112/67
[2019-09-23 19:14] VITALS: BP 129/73
--- NOTE | 2019-09-23 22:02 | NUR ---
PT RESTING IN BED WATCHING TV. IV ANTIBIOTICS INTACT. O2 PER NC 3L. LUNGS WITH WHEEZES COUGH. DECLINED HS SNACK.
[2019-09-24 04:58] VITALS: BP 136/71
[2019-09-24 08:00] VITALS: BP 132/81
[2019-09-24 15:45] VITALS: BP 144/77
--- NOTE | 2019-09-24 16:06 | NUR ---
MULTIPLE PIV LINES AND DIFFICULT STICK. AGREED TO MIDLINE PLACEMENT. THE LEFT UPPER ARM BASILIC WAS WIDLEY PATENT. A #4F POWER INJECTABLE MIDLINE WAS PLACED PER HOSPITAL POLICY. TRIMMED TO 10CM AND ADVANCED WITHOUT DIFFICULTY. LINE RELEASED FOR USE
--- NOTE | 2019-09-24 17:54 | NUR ---
ASSUMED CARE OF PT AT 0700. PT AOX4 IN MOD RESP DISTRESS. BILAT WHEEZES TO AUSCULTATION. DIMINISHED BREATH SOUNDS. STILL HAVING COUGHING FITS. PHYSICIANS AWARE. CALLS APPROPRIATELY. VISITING WITH AT BEDSIDE. NO OTHER CHANGES TO REPORT. IV ABX INFUSING PER ORDER. SLOW PROGRESS TOWARD POC GOALS.
[2019-09-24 19:24] VITALS: BP 121/67
[2019-09-25 04:04] VITALS: BP 136/75
--- NOTE | 2019-09-25 05:04 | NUR ---
ASSUMED CARE AT 1900. PT DENIES PAIN OR NAUSEA. C/O DRY COUGH AND TIGHT CHEST, WHICH IMPROVED WITH RT TREATMENT. HAVE GIVEN TESSALON ONCE. LUNGS WHEEZY WITH SLIGHT CRACKLES IN BASES. IV ABX INFUSED OVERNIGHT. NO OTHER CONCERNS, WILL CONTINUE TO MONITOR.
[2019-09-25 07:48] VITALS: BP 140/81
[2019-09-25 15:34] VITALS: BP 141/80
--- NOTE | 2019-09-25 18:08 | NUR ---
ASSUMED PATIENT CARE AT 0700. A/O X4. TOLERATED ON RA. UP AD MARITZA IN ROOM. PROGRESSSING TOWARDS POC GOALS.
[2019-09-25 19:09] VITALS: BP 133/64
[2019-09-26 03:07] VITALS: BP 155/82
--- NOTE | 2019-09-26 05:05 | NUR ---
ASSUMED CARE AT 1900. PT LUNG SOUNDS LESS WHEEZY THAN PREVIOUS SHIFT; EASILY SOB WHILE HAVING CONVERSATION, WHICH LED INTO A COUGHING FIT. GAVE SCHEDULED DEXTROMETH. AND PRN TESSALON. PLAN FOR D/C HOME TODAY, NO OTHER CONCERNS, WILL CONTINUE TO MONITOR.
[2019-09-26 07:37] VITALS: BP 155/90
[2019-09-26 11:43] VITALS: BP 135/78
--- NOTE | 2019-09-26 12:36 | NUR ---
ASSUMMED PT CARE AT APPROXIMATELY 0700. PT A&O X4. ASSESSMENT CHARTED. PT AMBUALTES STEADY/INDEPENDENT. PT DENIES HAVING CHEST PAIN. PT STATED SHE HAS SOB ON EXERSION. O2 SAT STABLE. PT DENIES HAVING ACUTE PAIN. PT COMFORTABLE IN BED. EDUCATED PT ABOUT POC. VITAL SIGNS STABLE. GAVE REPORT TO BRANDI ROJAS AT APPROXIMATELY 1200. BRANDI ROJAS STATED UNDERSTANDING AND DENIED HAVING FURTHER QUESTIONS.
--- NOTE | 2019-09-26 12:53 | NUR ---
Assumed care from BRANDI Boyle at approximately 12pm. Received awake on bed. A+OX4. On O2 at 3lpm via nasal cannula- pt's baseline at home. On regular diet- tolerating well; no nausea, no vomiting and no abdominal pain noted. Continent of bowel and bladder- able to go to the toilet. Independent with ADLs. With L upper arm midline- intact and flushing well. For possible discharge today as reported, a/w physician's rounds. Pt seen and examined by Dr La- verbal order that pt can be discharged from his standpoint; will do bronchoscopy as outpatient- Dr Marshall informed. To continue monitoring patient.
[2019-09-26] MEDS ORDERED: PULMICORT0.5 MG/22 INH (12:57)
[2019-09-26] MEDS ORDERED: PREDNISONE 10 M10 M1 PO (12:57)
[2019-09-26] MEDS ORDERED: DELSYM COU30 MG/5 ML PO (12:57)
[2019-09-26] MEDS ORDERED: AUGMENTIN 875-1 EACH PO (13:04)
[2019-09-26 13:09] VITALS: BP 135/78
--- NOTE | 2019-09-26 13:23 | NUR ---
DISCHARGE NOTE: SW reviewed chart and spoke with nursing and attending physician. Pt is medically stable for discharge home today. SW spoke with pt via phone to discuss discharge plan. Pt states she spoke with [facility] liaison regarding possible portable concentrator. Pt prefers to continue using her portable tanks instead of the concentrator. Pt's spouse to bring O2 and provide transportation home. SW updated pt's nurse. No SW needs identified at this time, but is available to assist should needs arise.
[2019-09-26] MEDS ORDERED: IPRAT-ALBUT 0.5-3 ML INH (13:28)
[2019-09-26] MEDS ORDERED: VENTOLIN HFA 1818 GM INH (13:29)
== END 2019-09-26 15:59 | disposition home or self-care (01) | DRG 871 ==
LOC: ER 14:44 → EROBS 16:49 → 3W 16:49
PROVIDERS: Emergency Medicine; Nurse Practitioner; ADMIT Internal Medicine; ATTEND Internal Medicine
PROC: 5A09357 Assistance with Respiratory Ventilation, Less than 24 Consecutive Hours, Continuous Positive Airway Pressure (ICD-10-PCS; principal; 2019-09-22)
PROC: 05HC33Z Insertion of Infusion Device into Left Basilic Vein, Percutaneous Approach (ICD-10-PCS; 2019-09-24)
DX: A41.9 Sepsis, unspecified organism (principal); J18.9 Pneumonia, unspecified organism; J96.21 Acute and chronic respiratory failure with hypoxia; J96.22 Acute and chronic respiratory failure with hypercapnia; J44.1 Chronic obstructive pulmonary disease with (acute) exacerbation; J44.0 Chronic obstructive pulmonary disease with (acute) lower respiratory infection; E87.3 Alkalosis; E87.2 Acidosis; R53.81 Other malaise; Z96.1 Presence of intraocular lens; M19.90 Unspecified osteoarthritis, unspecified site; K90.0 Celiac disease; R91.1 Solitary pulmonary nodule; Z20.828 Contact with and (suspected) exposure to other viral communicable diseases; Z98.42 Cataract extraction status, left eye; Z98.41 Cataract extraction status, right eye; Z90.710 Acquired absence of both cervix and uterus; Z90.49 Acquired absence of other specified parts of digestive tract; Z79.51 Long term (current) use of inhaled steroids; Z79.899 Other long term (current) drug therapy; Z88.2 Allergy status to sulfonamides; Z88.1 Allergy status to other antibiotic agents; Z91.040 Latex allergy status; Z87.891 Personal history of nicotine dependence; Z99.81 Dependence on supplemental oxygen; Z82.49 Family history of ischemic heart disease and other diseases of the circulatory system; Z80.1 Family history of malignant neoplasm of trachea, bronchus and lung; Z83.3 Family history of diabetes mellitus
CPT/HCPCS: 10080; 27000

== ENCOUNTER → 2019-09-22 | Outpatient (CLI) | payer OTHER ==
[~2019-09-22] MED LIST changes: +AUGMENTIN 875-1 EACH PO; +BEVESPI AEROS10.7 GM PO; +CARAFATE 1 GM TA1 GM PO; +DELSYM COU30 MG/5 ML PO; +FOLIC ACID1 MG PO; +IPRAT-ALBUT 0.5-3 ML INH; +LEVAQUIN 750 M750 MG PO; +MUCINEX600 MG PO; +NIACIN 500 MG500 M1 PO; +OMEPRAZOLE 20 M20 M1 PO; +PREDNISONE 10 M10 M1 PO; +PULMICORT0.5 MG/22 INH; +TESSALON PERLE100 M1 PO; +VENTOLIN HFA 1818 GM INH; +YUPELRI175 MCG/3 INH; +ZINC50 MG PO
== END ==
LOC: RAD 12:56
PROVIDERS: ATTEND Pediatrics
DX: R91.1 Solitary pulmonary nodule (principal); R06.00 Dyspnea, unspecified; J44.9 Chronic obstructive pulmonary disease, unspecified

== ENCOUNTER → 2019-10-06 | Outpatient (CLI) | payer OTHER ==
[~2019-10-06] MED LIST changes: +AUGMENTIN 875-1 EACH PO; +DELSYM COU30 MG/5 ML PO; +IPRAT-ALBUT 0.5-3 ML INH; +PULMICORT0.5 MG/22 INH; +YUPELRI175 MCG/3 INH
[2019-10-06 13:38] LABS: CREATININE 0.7 mg/dL (0.6-1.0)
== END ==
LOC: LAB 12:52
PROVIDERS: ATTEND Pediatrics
DX: J98.11 Atelectasis (principal); R06.02 Shortness of breath; R91.1 Solitary pulmonary nodule; J98.4 Other disorders of lung

== ENCOUNTER → 2020-05-31 | Outpatient (CLI) | payer OTHER | LOC: CAT 09:32 | PROVIDERS: ATTEND Pediatrics | DX: J44.9 Chronic obstructive pulmonary disease, unspecified (principal); R91.1 Solitary pulmonary nodule ==

== ENCOUNTER → 2020-07-31 | Outpatient (CLI) | payer OTHER | LOC: RAD 10:23 | PROVIDERS: ATTEND Pediatrics | DX: R06.02 Shortness of breath (principal); R06.00 Dyspnea, unspecified ==

== ENCOUNTER 2020-09-03 14:54 | Emergency (ER) | payer OTHER ==
[~2020-09-03] VITALS: Ht 162.6 cm; Wt 53.5 kg
--- NOTE | 2020-09-03 16:24 | EKG ---
[address] [address] ELECTROCARDIOGRAM REPORT Name: MIKEHERBERTHHATTIE Room #: [facility]#: [id number] Admission: 09/03/20 Attend Phys: Discharge: Date of : 43 Report #: [id number] [facility] ED Test Date: 2020-09-03 Test Time: 16:17:34 Pat Name: HATTIE STRAUSS Department: Room: Gender: F Patient Portal Concierge: santiago : 1945 Requested By: Joanne Palmer Order Number: [id number] MD: Nikita Najera Measurements Intervals [place] Rate: 87 P: 73 GA: 150 QRS: 28 QRSD: 129 T: 58 QT: 344 QTc: 414 Interpretive Statements Sinus rhythm Nonspecific intraventricular conduction delay Compared to ECG 03/28/2016 12:16:58 Intraventricular conduction delay now present Electronically Signed On 09-03-2020 16:24:36 CDT by Nikita Najera [email or web address] <ELECTRONICALLY SIGNED> By: Nikita Najera MD, [facility] 09/03/20 1624 1617 1617 Nikita Najera MD, FACC /EPI
[2020-09-03 16:34] LABS: HEMATOCRIT 32.1 % (37.0-47.0); HEMOGLOBIN 11.3 gm/dL (12.0-15.0); MCH 29.4 pg (26.0-34.0); MCHC 35.2 g/dL (28.0-37.0); MCV 83.4 fL (80.0-100.0); PLATELET COUNT 503 thou/uL (150-400); RBC 3.85 mil/uL (4.20-5.00); RDW 15.3 % (10.5-14.5); WBC 6.9 thou/uL (4.0-11.0)
[2020-09-03 16:44] LABS: ANION GAP 7 mmol/L (7-16); BUN 7 mg/dL (7-18); CALCIUM 8.8 mg/dL (8.5-10.1); CHLORIDE 99 mmol/L (98-107); CO2 29 mmol/L (21-32); CREATININE 0.7 mg/dL (0.6-1.0); GLUCOSE 93 mg/dL (74-106); POTASSIUM 4.2 mmol/L (3.5-5.1); SODIUM 135 mmol/L (136-145)
[2020-09-03 16:54] LABS: ALBUMIN 2.7 g/dL (3.4-5.0); DIRECT BILIRUBIN < 0.1 mg/dL (<0.1-0.2); SGOT 29 U/L (15-37); SGPT 36 U/L (14-59); TOTAL BILIRUBIN 0.2 mg/dL (0.2-1.0); TOTAL PROTEIN 8.3 g/dL (6.4-8.2); TROPONIN-I <0.06 ng/mL (<0.06)
[2020-09-03 16:55] LABS: ABSOLUTE NEUTROPHILS 5.3 thou/uL (1.4-8.2); PLATELET ESTIMATE INCREASED
[2020-09-03] MEDS ORDERED: PREDNISONE 20 M20 MG PO (18:22)
[2020-09-03] MEDS ORDERED: DOXYCYCLINE 10100 MG PO (18:22)
[2020-09-03 18:24] VITALS: BP 147/66
== END 2020-09-03 18:24 | disposition home or self-care (01) ==
LOC: ER 14:54
PROVIDERS: Emergency Medicine
DX: J44.1 Chronic obstructive pulmonary disease with (acute) exacerbation (principal); Z20.822 Contact with and (suspected) exposure to COVID-19; Z87.891 Personal history of nicotine dependence; Z91.040 Latex allergy status; Z88.2 Allergy status to sulfonamides; Z88.7 Allergy status to serum and vaccine; Z79.82 Long term (current) use of aspirin

== ENCOUNTER 2020-09-26 13:51 | Inpatient (IN) | payer OTHER ==
[~2020-09-26] VITALS: Ht 162.6 cm; Wt 52.4 kg
[~2020-09-26 13:51] MED LIST changes: +DOXYCYCLINE 10100 MG PO; +PREDNISONE 20 M20 MG PO
[2020-09-26 14:18] VITALS: BP 121/67
[2020-09-26 15:03] LABS: ABSOLUTE NEUTROPHILS 4.2 thou/uL (1.4-8.2); BASOPHILS 0.5 % (0.0-2.0); EOSINOPHILS 4.7 % (0.0-3.0); HEMATOCRIT 32.5 % (37.0-47.0); HEMOGLOBIN 10.7 gm/dL (12.0-15.0); LYMPHOCYTES 10.2 % (24.0-44.0); MCH 27.8 pg (26.0-34.0); MCHC 33.1 g/dL (28.0-37.0); MCV 83.9 fL (80.0-100.0); MONOCYTES 7.6 % (1.0-8.0); PLATELET COUNT 399 thou/uL (150-400); RBC 3.87 mil/uL (4.20-5.00); RDW 15.8 % (10.5-14.5); WBC 5.5 thou/uL (4.0-11.0)
[2020-09-26 15:07] LABS: BE(vivo) 1.7 mmol/L (-2 to +3); HCO3 25.1 mmol/L (22.0-26.0); PCO2 35.2 mmHg (35.0-45.0); pH 7.471 (7.360-7.450)
[2020-09-26 15:08] LABS: PO2 55.7 mmHg (80.0-100.0)
[2020-09-26 15:19] LABS: ALBUMIN 2.5 g/dL (3.4-5.0); CALCIUM 8.6 mg/dL (8.5-10.1); CREATININE 0.7 mg/dL (0.6-1.0); POTASSIUM 4.3 mmol/L (3.5-5.1); TOTAL BILIRUBIN 0.2 mg/dL (0.2-1.0); TOTAL PROTEIN 8.4 g/dL (6.4-8.2)
[2020-09-26 17:53] LABS: URINE BILIRUBIN NEGATIVE (Negative); URINE BLOOD NEGATIVE (Negative); URINE CLARITY CLEAR; URINE COLOR YELLOW; URINE GLUCOSE-RANDOM* NEGATIVE (Negative); URINE KETONES 1+ (Negative); URINE LEUKOCYTES-REFLEX NEGATIVE (Negative); URINE NITRITE-REFLEX NEGATIVE (Negative); URINE PROTEIN (DIPSTICK) NEGATIVE (Negative); URINE SPECIFIC GRAVITY 1.015 (1.005-1.035); URINE UROBILINOGEN 0.2 E.U./dl (0.2-1.0)
[2020-09-26 22:21] VITALS: BP 109/59
[2020-09-26 22:34] VITALS: BP 112/52
[2020-09-26 22:57] VITALS: BP 111/68
[2020-09-27] MEDS ORDERED: BUDESONIDE0.25 MG/2 (00:18)
[2020-09-27] MEDS ORDERED: BROVANA15 MCG/2 M INH (00:19)
[2020-09-27] MEDS ORDERED: YUPELRI175 MCG/3 INH (00:19)
[2020-09-27] MEDS ORDERED: RAYOS5 MG PO (00:23)
[2020-09-27] MEDS ORDERED: MAGNESIUM250 M1 PO (00:24)
[2020-09-27] MEDS ORDERED: KLOR-CON M2020 MEQ PO (00:26)
[2020-09-27 04:02] VITALS: BP 117/72
[2020-09-27 04:50] LABS: CALCIUM 8.6 mg/dL (8.5-10.1); CREATININE 0.6 mg/dL (0.6-1.0); MAGNESIUM 2.1 mg/dL (1.8-2.4); POTASSIUM 4.5 mmol/L (3.5-5.1)
[2020-09-27 05:23] LABS: HEMOGLOBIN 10.4 gm/dL (12.0-15.0); MCHC 33.6 g/dL (28.0-37.0); MCV 83.3 fL (80.0-100.0); PLATELET COUNT 433 thou/uL (150-400); RBC 3.73 mil/uL (4.20-5.00); RDW 15.8 % (10.5-14.5); WBC 2.8 thou/uL (4.0-11.0)
--- NOTE | 2020-09-27 07:46 | NUR ---
PT ARRIVED FROM ER VIA CART, PLACED IN ROOM 356. ADMISSION ASSESSMENTS COMPLETED. PT REPORTS UDING O2 AT 3L PER NC AT HOME. O2 IS AT 3L ARRIVING FROM ER. LUNGS DIMINISHED THROUGHOUT. COUGH NOTED BUT PT STATE IT HAS BEEN MOSTLY NON-PRODUCTIVE. SEE CHARTING.
[2020-09-27 08:39] LABS: ABSOLUTE NEUTROPHILS 2.5 thou/uL (1.4-8.2)
[2020-09-27 08:40] LABS: ANISOCYTOSIS SLIGHT
[2020-09-27 10:04] VITALS: BP 113/74
[2020-09-27 11:26] VITALS: BP 127/76
[2020-09-27 14:56] LABS: CLARITY CLOUDY; SOURCE LUL
[2020-09-27 15:00] LABS: BF NUCLEATED CELLS 128 /mm3; BF RBC 477 /mm3
--- NOTE | 2020-09-27 15:12 | NUR ---
INITIAL ASSESSMENT: SW reviewed chart and spoke with nursing and attending physician. Pt was admitted from home due to COPD exacerbation. Pt had bronch earlier today. Pt is on 3L of O2. Pt is on IV abx and IV steroids. Pt met with pt and spouse at bedside. Introduced role of SW. Pt is alert/orientated. Pt and spouse live at home. Pt states she is normally independent with ADLs. Pt does have home O2 provided by [facility]. Pt is normally on 3L. Pt's PCP is Dr. Zakia Malagon. PT/OT ordered to evaluate pt for discharge needs. Plan is for pt to discharge home when medically stable. SW is following to assist as needed with discharge planning.
[2020-09-27 15:16] VITALS: BP 112/66
[2020-09-27 15:53] LABS: BF MACROPHAGE 85 %; BF NEUTROPHILS 9 %
--- NOTE | 2020-09-27 18:24 | NUR ---
ASSUMED PATIENT CARE AT 0700. PATIENT HAD BRNOCHCOSPY IN AM TOLERATED WELL. NO SOB NOTED. UP AD MARITZA IN ROOM. SLOWLY TOWARDS POC GOALS.
[2020-09-27 19:12] VITALS: BP 115/75
[2020-09-28 04:15] VITALS: BP 129/76
[2020-09-28 05:03] LABS: HEMATOCRIT 31.8 % (37.0-47.0); HEMOGLOBIN 10.5 gm/dL (12.0-15.0); MCH 27.7 pg (26.0-34.0); MCHC 32.9 g/dL (28.0-37.0); MCV 84.1 fL (80.0-100.0); RBC 3.79 mil/uL (4.20-5.00); RDW 15.8 % (10.5-14.5); WBC 7.5 thou/uL (4.0-11.0)
[2020-09-28 05:45] LABS: CALCIUM 8.4 mg/dL (8.5-10.1); CREATININE 0.8 mg/dL (0.6-1.0); POTASSIUM 4.2 mmol/L (3.5-5.1)
--- NOTE | 2020-09-28 06:25 | NUR ---
Pt. stated she didn't sleep much, just can't sleep. Up ad yue in room with steady gait. Maintaining O2 sat of 94% on 3L/NC. She does get short of breath with exertion but fells a lot better. Making progress towards care plan goals.
[2020-09-28 07:27] VITALS: BP 142/82
--- NOTE | 2020-09-28 10:46 | HC ---
[facility] [place] [address] CONSULTATION Name: HATTIE STRAUSS Room #: 356-P [facility] IN .R.#: [id number] Admission: 09/26/20 Attend Phys: Jerome Gomez MD Discharge: Date of : 43 Report #: [id number] THIS REPORT FOR: cc: Zakia Malagon,Zakia Welsh,Dave Ponce MD ~ DOC #: [id number] Dave Sotelo MD DATE OF SERVICE: 09/27/2020 INFECTIOUS DISEASE CONSULTATION ATTENDING PHYSICIAN: Dr. Gomez REFERRING PHYSICIAN: Dr. Adelso Ward. REASON FOR EVALUATION: Progressive lower respiratory tract pneumonitis. HISTORY OF PRESENT ILLNESS: Chart reviewed and the patient examined. A 74 years old with known history of underlying lung disease, on chronic oxygen therapy at 2-3 liters per nasal cannula. Over the course of last few weeks, has had increasing difficulty breathing. She has had a cough. It has essentially been nonproductive. She has been evaluated in the ER on a couple of different occasions, given corticosteroids as well as empiric therapy mixed with quinolones and perhaps tetracycline. It is not clear if she has had significant fevers or chills. She notes her appetite has been diminished with poor p.o. intake. Denies significant GI related complaints. 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 She has had no recent travel. She was admitted and underwent bronchoscopy earlier today, was found to have thick tenacious colored secretions. These were ____ sent to lab for microbiological evaluation. Empirically started on Levaquin. ALLERGIES: Listed to SULFA, LATEX. CURRENT MEDICATIONS: Include ____, budesonide, pantoprazole, methylprednisolone 40 mg IV t.i.d., enoxaparin, ipratropium/albuterol inhaler, levofloxacin, p.r.n. ondansetron and acetaminophen. PAST MEDICAL HISTORY: As described above. O2 requiring COPD with frequent corticosteroid given the ____ history of celiac disease, osteoarthritis, previous cholecystectomy, appendectomy, hysterectomy, small-bowel obstruction with sigmoid resection. SOCIAL HISTORY: Former smoker, no ethanol or illicit drug use. [address] [address] CONSULTATION Name: HATTIE STRAUSS Room #: 356-P [facility] IN ..#: [id number] Admission: 09/26/20 Attend Phys: Jerome Gomez MD Discharge: Date of : 43 Report #: [id number] FAMILY HISTORY: Noncontributory. REVIEW OF SYSTEMS: Otherwise, overall unremarkable with the exception of the above. PHYSICAL EXAMINATION: GENERAL: She appears chronically ill and undernourished, pleasant, generally lucid, mild to moderate distress. Does have occasional cough, nonproductive during the evaluation. VITAL SIGNS: Temperature 97.8, pulse 78, respirations 15, blood pressure 127/76. SKIN: Warm, dry, no rashes. HEENT: Normocephalic. Extraocular muscles intact. Nasal cannula in place. NECK: Supple. LUNGS: Scattered inspirational coarse sounds, not particularly like a wheeze or stridor. HEART: Distant, appears regular, I do not appreciate murmur. ABDOMEN: Mildly distended, generally soft, nontender. EXTREMITIES: No cyanosis. GENITOURINARY AND RECTAL: Deferred. LABORATORY DATA: Most recent CBC: White count of 2.8, H and H 10.4 and 31.0, platelets of 433. Predominant neutrophilia 90%. ANC of 2500. Troponin less than 0.06. Blood cultures sterile thus far. Electrolytes: Sodium 138, potassium 4.5, chloride 101, bicarbonate is 25, anion gap of 12, BUN and creatinine 12 and 0.6, glucose of 133. Urinalysis unremarkable. ProBNP of 131. Chest x-ray, no acute process. Procalcitonin less than 0.05. Liver functions otherwise unremarkable. Albumin 2.5, total protein of 8.4. Lactic acid 0.8. ABGs: pH 7.471, pCO2 of 35.2, pO2 of 55.7 on 2 liters. Influenza antigen and coronavirus testing were negative. ASSESSMENT AND PLAN: 1. Chronic lower respiratory tract inflammation with suspicion of infection, perhaps atypical or opportunistic. She has subsequently had a bronchoscopy. We will continue empiric therapy with Levaquin. Await further results. Again, no history of any exposures. 2. Cytopenias, unclear etiology. Expect an elevated white count in the setting of exogenous corticosteroids, may need to pursue that diagnosis. We will discuss with Dr. Ward. 3. Celiac disease. 4. Osteoarthritis. 5. Malnutrition with albumin of 2.5. MD SHALA Davey/JANIE/LINDSAY [facility] [address] [place] [address] CONSULTATION Name: HATTIE STRAUSS Room #: 356-P [facility] IN M.R.#: [id number] Admission: 09/26/20 Attend Phys: Jerome Gomez MD Discharge: Date of : 43 Report #: [id number] <ELECTRONICALLY SIGNED> By: Dave Sotelo MD 09/28/20 1046 1351 Dave Sotelo MD /nt
--- NOTE | 2020-09-28 10:58 | NUR ---
ORDERS RECEIVED FOR PT EVAL AND TREAT. Pt LIVES W/ W/ RAMP TO ENTER HOME. 3L O2 USE AT BASELINE AND CURRENTLY. HAS BEEN UP AD MARITZA IN ROOM WHICH WAS CONFIRMED W/ RN. Pt STATED 'I WALKED 10 LAPS IN THE ROOM' THIS MORNING. POLITELY DECLINING NEED FOR ACUTE PT AT THIS TIME. ACUTE PT TO SIGN OFF.
[2020-09-28 11:18] VITALS: BP 115/67
[2020-09-28 15:02] VITALS: BP 115/67
--- NOTE | 2020-09-28 15:03 | NUR ---
SW reviewed chart and spoke with nursing and attending physician. Pt is progressing towards goals for discharge. Discharge home is anticipated for tomorrow. SW met with pt at bedside to discuss discharge plan. Pt declines need for services. Pt's family will be able to provide transportation home when discharge. Pt's family will bring portable O2 tank for ride home. Pt asked about private duty services that go to [place], [place]. SW contacted several private duty agencies. [facility] in [place] does go to [place]. SW placed contact info in pt's discharge summary. Pt uses [facility] ( ) if for some reason needs a portable O2 tank. No additional SW needs identified at this time, but is available to assist should needs arise.
[2020-09-28 16:00] VITALS: BP 126/72
--- NOTE | 2020-09-28 18:44 | NUR ---
NO DISTRESS NOTED. PROGRESSING TOWARDS POC GOALS.
[2020-09-28 19:00] VITALS: BP 126/70
[2020-09-29 04:22] VITALS: BP 141/74
[2020-09-29 07:29] VITALS: BP 136/85
--- NOTE | 2020-09-29 08:08 | NUR ---
Pt. stated she finally got a good night sleep last night though she woke up sweating. O2 at 3L/NC ,no respiratory distress. Denies any concern at this time. Progressing towards discharge goals.
[2020-09-29 12:04] VITALS: BP 133/75
[2020-09-29] MEDS ORDERED: LEVOFLOXACIN500 MG PO (12:25)
[2020-09-29] MEDS ORDERED: PREDNISONE 10 M10 M1 PO (12:25)
--- NOTE | 2020-09-29 15:33 | NUR ---
PROGRESSING TOWARDS POC GOALS. DC TO HOME.
--- NOTE | 2020-10-02 11:07 | PATH ---
[facility] [address] [place] [address] PATHOLOGY RPT PROCEDURE Name: HATTIE STRAUSS Room #: 356-P [facility] IN [facility]#: [id number] Admission: 09/26/20 Date of : 43 Discharge: 09/29/20 Report #: [id number] Path Case #: [id number] Note [facility] Accession Number: [id number] TESTS RESULT FLAG UNITS REF RANGE LAB Clinician Provided Cytology Information No. of containers..01 Other (Miscellaneous) Source: CHRISTOFER BRUSHING DIAGNOSIS: 02 CHRISTOFER BRUSHING NEGATIVE FOR MALIGNANT EPITHELIAL CELLS. REACTIVE BRONCHIAL CELLS ARE PRESENT. Signed out by: Sera Sánchez MD, Pathologist NPI- [id number] Performed by: Lacie Hernandez, Lead Slot Technician ([facility]) Gross description: 01 NI, CLEAR COLORLESS, 1 TP /LCS 09/28/2020 0346 Local FLAG LEGEND: L-Low Normal,H-High Normal,LL-Alert Low,HH-Alert High <-Panic Low,>-Panic High,A-Abnormal,AA-Critical Abnormal Performed at: [address] [place] [address] Russell French MD, [address] [address] Sera Sánchez MD, Specimen Comment: A courtesy copy of this report has been sent to [phone] Specimen Comment: [phone] Specimen Comment: Report sent to / DR MAYFIELD Specimen Comment: A duplicate report has been generated due to demographic updates. Performed at: [address], [place], [place] [id number] MD Russell French MD Phone: [phone]
--- NOTE | 2020-10-02 14:06 | PATH ---
[facility] [address] [facility] [place] [address] PATHOLOGY RPT PROCEDURE Name: HATTIE STRAUSS Room #: 356-P [facility] IN [facility]#: [id number] Admission: 09/26/20 Date of : 43 Discharge: 09/29/20 Report #: [id number] Path Case #: [id number] Note [facility] Accession Number: [id number] TESTS RESULT FLAG UNITS REF RANGE LAB Clinician Provided Cytology Information No. of containers..01 Other (Miscellaneous) Source: CHRISTOFER BAL DIAGNOSIS: 02 CHRISTOFER BAL NEGATIVE FOR MALIGNANT EPITHELIAL CELLS. REACTIVE BRONCHIAL EPITHELIAL CELLS ARE PRESENT. PULMONARY MACROPHAGES PRESENT, INDICATIVE OF LOWER RESPIRATORY TRACT SAMPLING. Signed out by: 02 Sera Sánchez MD, Pathologist NPI- [id number] Performed by: 01 Lacie Hernandez Mattress Filler ([facility]) Gross description: 01 5ML, CLOUDY COLORLES, 1 TP /LCS 09/28/2020 0349 Local FLAG LEGEND: L-Low Normal,H-High Normal,LL-Alert Low,HH-Alert High <-Panic Low,>-Panic High,A-Abnormal,AA-Critical Abnormal Performed at: [address] [place] [address] Russell French MD, [address] [address] Sera Sánchez MD, Specimen Comment: A courtesy copy of this report has been sent to [phone] Specimen Comment: [phone], Specimen Comment: Report sent to ,DR MAYFIELD / DR LINDSEY Specimen Comment: A duplicate report has been generated due to demographic updates. Performed at: [address], [place], [place] [id number] MD Russell French MD Phone: [phone]
[2020-10-02 17:07] LABS: GLOBULIN TOTAL 4.7 g/dL (2.2-3.9); M-SPIKE 1.7 g/dL (Not Observed)
== END 2020-09-29 15:33 | disposition home or self-care (01) | DRG 189 ==
LOC: ER 13:51 → 3W 18:57 → EROBS 18:57 → 3W 22:35
PROVIDERS: Nurse Practitioner; Pediatrics; Specialist; ADMIT Hospitalist; ATTEND Hospitalist
DX: J96.21 Acute and chronic respiratory failure with hypoxia (principal); J44.1 Chronic obstructive pulmonary disease with (acute) exacerbation; E44.0 Moderate protein-calorie malnutrition; Z68.1 Body mass index [BMI] 19.9 or less, adult; J96.22 Acute and chronic respiratory failure with hypercapnia; M19.90 Unspecified osteoarthritis, unspecified site; D75.9 Disease of blood and blood-forming organs, unspecified; Z20.822 Contact with and (suspected) exposure to COVID-19; D64.9 Anemia, unspecified; Z79.82 Long term (current) use of aspirin; Z79.899 Other long term (current) drug therapy; Z98.42 Cataract extraction status, left eye; Z98.41 Cataract extraction status, right eye; Z90.710 Acquired absence of both cervix and uterus; Z90.49 Acquired absence of other specified parts of digestive tract; Z88.2 Allergy status to sulfonamides; Z88.8 Allergy status to other drugs, medicaments and biological substances; Z91.040 Latex allergy status; Z87.891 Personal history of nicotine dependence
CPT/HCPCS: 10879; 62110; 62900; 70005

== ENCOUNTER 2021-03-20 22:26 | Inpatient (IN) | payer OTHER ==
[~2021-03-20] VITALS: Ht 160 cm; Wt 48.1 kg
[~2021-03-20 22:26] MED LIST changes: +BROVANA15 MCG/2 M INH; +BUDESONIDE0.25 MG/2; +KLOR-CON M2020 MEQ PO; +LEVOFLOXACIN500 MG PO; +MAGNESIUM250 M1 PO; +RAYOS5 MG PO
[2021-03-21] VITALS (14 sets, daily range): BP systolic 97–111; BP diastolic 60–67
[2021-03-21 01:23] LABS: HEMATOCRIT 33.4 % (37.0-47.0); MCH 30.8 pg (26.0-34.0); MCHC 33.1 g/dL (28.0-37.0); MCV 93.2 fL (80.0-100.0); RBC 3.58 mil/uL (4.20-5.00); RDW 17.7 % (10.5-14.5); WBC 8.7 thou/uL (4.0-11.0)
[2021-03-21 01:33] LABS: CHOLESTEROL 124 mg/dL (<200); HDL CHOLESTEROL 63 mg/dL (>40); LDL CHOLESTEROL 43 mg/dL (<100); TRIGLYCERIDE 93 mg/dL (<150); VLDL 19 mg/dL (<40)
[2021-03-21 01:37] LABS: SERUM ASSESSMENT Clear
[2021-03-21 01:42] LABS: INR 1.05; PROTIME 11.4 Seconds (10.5-12.1)
[2021-03-21] MEDS ORDERED: PREDNISONE 20 M20 MG PO (02:10)
[2021-03-21] MEDS ORDERED: PERCOCET 10-321 EAC1 PO (02:12)
[2021-03-21] MEDS ORDERED: POTASSIUM600 MG PO (02:13)
[2021-03-21] MEDS ORDERED: CARAFATE 1 GM TA1 G1 PO (02:18)
[2021-03-21] MEDS ORDERED: TESSALON PERLE100 MG PO (02:19)
[2021-03-21] MEDS ORDERED: FUROSEMIDE 20 M20 MG PO (02:21)
[2021-03-21] MEDS ORDERED: OMEPRAZOLE 20 M20 M1 PO (02:23)
--- NOTE | 2021-03-21 04:33 | NUR ---
PT ADMITTEDTO ROOM 201 FROM [facility], PT IS 75 YO FEMALE ADMITTED FOR CP NSTEMI; ALERT AND ORIENTEDX4, PT ADMISSION ASSESSMENT, HX AND EDUCATION COMPLETED, SR ON TELE, PAIN TO THE L. HIP AND RIB PAIN, DENIES CP, MORPHINE GIVEN WITH PARTIAL RELIEF, HEPARIN GTT INITIATED PER PROTOCOL, PT SLEEPING AT THIS TIME, PLAN FOR CARDIOLOGY AND PULMONOLOGY CONSULT, WILL CONTINUE TO MONITOR
--- NOTE | 2021-03-21 08:53 | EKG ---
[address] [place] [address] ELECTROCARDIOGRAM REPORT Name: HATTIE STRAUSS Room #: 201- ADM IN M.R.#: [id number] Admission: 03/20/21 Attend Phys: Beck Hamm Discharge: Date of : 43 Report #: [id number] [facility] Test Date: 2021-03-21 Test Time: 07:48:34 Pat Name: HATTIE SRTAUSS Department: Room: 201 Gender: F Regional Trainer: IRENA : 1945 Requested By: Ailyn Polk Order Number: [id number] MD: Nikita Najera Measurements Intervals [place] Rate: 79 P: 62 NJ: 141 QRS: 14 QRSD: 92 T: 57 QT: 409 QTc: 469 Interpretive Statements Sinus rhythm Borderline T abnormalities, anterior leads Compared to ECG 09/03/2020 16:17:34 T-wave abnormality now present Intraventricular conduction delay no longer present Electronically Signed On 03-21-2021 8:53:47 ELECTRONIC TRANSACTION IMPLEMENTER by Nikita Najera [email or web address] <ELECTRONICALLY SIGNED> By: Nikita Najera MD, [facility] 03/21/21 0853 Nikita Najera MD, [facility] /EPI
[2021-03-21 09:10] LABS: CALCIUM 8.4 mg/dL (8.5-10.1); CREATININE 0.6 mg/dL (0.6-1.0); POTASSIUM 4.2 mmol/L (3.5-5.1)
[2021-03-21 09:16] LABS: ALBUMIN 2.6 g/dL (3.4-5.0); TOTAL BILIRUBIN 0.2 mg/dL (0.2-1.0); TOTAL PROTEIN 8.1 g/dL (6.4-8.2)
--- NOTE | 2021-03-21 13:00 | 2DMMODE ---
[facility] [place] [address] 2 D/M-MODE ECHOCARDIOGRAM Name: HATTIE STRAUSS David Room #: 201-P [facility] IN ..#: [id number] Admission: 03/20/21 Attend Phys: Beck Hamm Discharge: Date of : 43 Report #: [id number] THIS REPORT FOR: cc: Zakia Malagon,Zakia Dawkins,Peter Almanza MD ~ APPROVED REPORT Study performed: 03/21/2021 11:55:24 EXAM: Comprehensive 2D, Doppler, and color-flow Echocardiogram Patient Location: Bedside Status: routine BSA: 1.48 HR: 79 bpm BP: 99/64 mmHg Rhythm: NSR Other Information Study Quality: Good Indications Chest pain, elevated troponin, NSTEMI COPD 2D Dimensions RVDd: 27.16 mm IVSd: 10.01 (7-11mm) LVOT Diam: 19.30 (18-24mm) LVDd: 40.73 mm PWd: 7.56 (7-11mm) LVDs: 29.51 (25-40mm) Left Atrium: 30.45 (27-40mm) Aortic Root: 31.01 mm Volumes Left Atrial Volume (Systole) Single Plane 4CH: 24.71 mL Single Plane 2CH: 27.85 mL LA ESV Index: 20.00 mL/m2 Aortic Valve AoV Peak Vipul.: 1.18 m/s AO Peak Gr.: 5.52 mmHg LVOT Max P.65 mmHg LVOT Max V: 1.08 m/s [facility] [place] [address] [place] [address] 2 D/M-MODE ECHOCARDIOGRAM Name: MIKEHERBERTHHATTIE Room #: 201-P [facility] IN ..#: [id number] Admission: 03/20/21 Attend Phys: Beck Hummel Discharge: Date of : 43 Report #: [id number] YONY Vmax: 2.68 cm2 Mitral Valve E/A Ratio: 0.8 MV Decel. Time: 256.97 ms MV E Max Vipul.: 0.76 m/s MV A Vipul.: 0.99 m/s MV PHT: 74.52 ms IVRT: 93.43 ms Pulmonary Valve PV Peak Vipul.: 1.01 m/s PV Peak Gr.: 4.12 mmHg Pulmonary Vein P Vein S: 0.74 m/s P Vein A: 0.38 m/s P Vein D: 0.53 m/s P Vein A Dur.: 86.5 msec P Vein S/D Ratio: 1.40 Tricuspid Valve TR Peak Vipul.: 2.34 m/s RAP Estimate: 5.00 mmHg TR Peak Gr.: 22.00 mmHg PA Pressure: 27.00 mmHg Left Ventricle The left ventricle is normal size. Regional wall motion abnormalities are noted. There is normal left ventricular wall thickness. Left ventricular systolic function is mild to moderately decreased. LVEF is 40-45%. Mild diastolic dysfunction is present (impaired relaxation pattern). Right Ventricle The right ventricle is normal size. The right ventricular systolic function is normal. Atria The left atrium size is normal. The right atrium size is normal. Aortic Valve The aortic valve is normal in structure. No aortic regurgitation is present. There is no aortic valvular stenosis. Mitral Valve The mitral valve is normal in structure. There is no mitral valve regurgitation noted. No evidence of mitral valve stenosis. [facility] [place] [address] [place] [address] 2 D/M-MODE ECHOCARDIOGRAM Name: CARLOS AHATTIE Room #: 201-P [facility] IN ..#: [id number] Admission: 03/20/21 Attend Phys: Beck Hummel Discharge: Date of : 43 Report #: [id number] Tricuspid Valve The tricuspid valve is normal in structure. Trace tricuspid regurgitation. Estimated PAP is 27mmHg. Pulmonic Valve The pulmonary valve is normal in structure. Trace pulmonic regurgitation. Great Vessels The aortic root is normal in size. Ascending aorta is not well visualized. IVC is normal in size and collapses >50% with inspiration. Pericardium There is no pericardial effusion. <Conclusion> The left ventricle is normal size. There is normal left ventricular wall thickness. Left ventricular systolic function is mild to moderately decreased. Mild diastolic dysfunction is present (impaired relaxation pattern). The right ventricle is normal size. The left atrium size is normal. The aortic valve is normal in structure. There is no mitral valve regurgitation noted. Trace tricuspid regurgitation. Estimated PAP is 27mmHg. <ELECTRONICALLY SIGNED> By: Peter Browne MD 03/21/21 1300 1300 1300 Peter Browne MD /INF
--- NOTE | 2021-03-21 13:12 | CATHLAB ---
[facility] [place] [address] INVASIVE PROCEDURE REPORT Name: HATTIE STRAUSS Room #: 201-P ADM IN M.R.#: [id number] Admission: 03/20/21 Attend Phys: Beck Hamm Discharge: Date of : 43 Report #: [id number] THIS REPORT FOR: cc: Zakia Malagon Elizabeth DO Park, Jin S. MD ~ APPROVED REPORT Study performed: 03/21/2021 09:58:17 Patient Details Patient Status: In-Patient Room #: 200 The patient is a 75 year-old female Event Personnel Peter Browne Supercharger Mechanic, Lashaun Kumar RN RN, Samantha Arriaga RTR Zane Moser Ja'net RTR Monitor Procedures Performed Left Heart Cath w/or w/o Coronaries [id number] [facility] Art Access - R femoral artery* Hemostasis with Manual pressure 68019 Initial Mod Sed Same Phys/QHP Gr5y [id number] Indication Non-STEMI , Dyspnea, Chest pain Risk Factors Chronic Lung DiseaseHypercholesterolemiaPhysical Activity, Hypertension Procedure Narrative The patient was brought urgently to the Cardiac Catheterization Laboratory and was prepped and draped in a sterile manner. The Right Groin^ was infiltrated with 1% Lidocaine subcutaneous anesthesia. A PINNACLE 4FR Sheath #[id number] sheath was inserted into the RFA^. Coronary angiography was performed using coronary diagnostic catheters. The right coronary system was accessed and visualized with a JR4 catheter. The left coronary system was accessed and visualized with a JL4 catheter. The left ventricle was accessed and visualized with a PIGTAIL catheter. Left ventricular/Aortic Valve gradient assessed via catheter pullback. Hemostasis was obtained with manual pressure following sheath removal without any complications. The patient tolerated the procedure well and there were no complications associated with the procedure. There was no hematoma. [facility] [place] [address] INVASIVE PROCEDURE REPORT Name: HATTIE STRAUSS Room #: 201-P [facility] IN ..#: [id number] Admission: 03/20/21 Attend Phys: Beck Hummel Discharge: Date of : 43 Report #: [id number] Intraoperative Conscious Sedation Sedation start time: 10:38 Case end Time: 11:01 Versed 1 mg Fluoro Time: 1.34 minutes Dose: DAP 1013.60 cGycm2 124 mGy Contrast Type and Amount: Omnipaque 100 ml Coronary Angiography The patient's coronary anatomy is right dominant. Diagnostic Cath Left Main Left main artery is a large-caliber vessel, appears angiographically normal. LAD The LAD is a moderate-sized caliber vessel, traversing the anterior wall and wrapping around the apex. There is mild disease in the proximal segment, 20%. Diagonal 1 This is a moderate-sized caliber vessel, with a moderate stenosis in the proximal segment, 40 to 50%. Circumflex The left circumflex artery is a moderate-sized caliber vessel, with no flow-limiting lesions. OM1 The first obtuse marginal artery has a early takeoff from the left circumflex proper. There is mild disease in the proximal segment, 20%. OM2 This is a small to moderate-sized caliber vessel, patent with no flow-limiting lesions. Right Coronary There is mild diffuse disease in the proximal RCA, 30%. R PDA This is a moderate-sized caliber vessel, patent with no flow-limiting lesions. RPLV This is a moderate-sized caliber vessel, patent with no flow-limiting lesions. Left Ventriculography The left ventricle is normal in size with Diminished contractility. The left ventricular ejection fraction is estimated to be 40%. There is hypokinesis of the anterolateral segment. Hemodynamics The aortic pressure is 115/58 mmHg with a mean of 86 mmHg. The left ventricular pressure is 136/4 mmHg with a mean of mmHg. The left ventricular end diastolic pressure is 27 mmHg. Pullback from the left ventricle to the aorta revealed no gradient across the aortic valve. [facility] [address] [place] [address] INVASIVE PROCEDURE REPORT Name: HATTIE STRAUSS Room #: 201-P [facility] IN M.R.#: [id number] Admission: 03/20/21 Attend Phys: Beck Hummel Discharge: Date of : 43 Report #: [id number] Conclusion 1. There is a moderate stenosis in the first diagonal artery. 2. There is mild disease in the proximal LAD, RCA and first obtuse marginal artery. 3. There is mild to moderate segmental LV dysfunction. 4. Recommend guideline directed medical therapy and risk factor management. <ELECTRONICALLY SIGNED> By: Peter Browne MD 03/21/211311 11 11 Peter Browne MD /INF
--- NOTE | 2021-03-21 13:51 | NUR ---
Case opened to follow for dc planning. Pt known to cm from an admission this past summer. She lives in [place], [place] with her spouse and is normally indep with gait and adl's. She has a ramp to enter her one story home and has home o2 in place per [facility]. She uses 3liters at home due to COPD. Her pcp is Dr. Zakia Malagon in [place], [place].She is going to the geotechnical laboratory technician today. PT/OT evals on hold due to her procedure. Possible dc over the holiday weekend pending her procedure. Should be indicated, [facility] may [place] able [place] and [facility] can be reached at [phone] should she need a portable tank at dc. [facility] [phone] and fax [phone]
--- NOTE | 2021-03-21 15:35 | NUR ---
Pt was A&0x4, VS stable and afebrile throughout shift. Pt returned from [employer] at 1130. Hemostasis was achieved at 1100. Right groin site is C/D/I, no hematoma. Pt worked with PT at 1330 and was able to sit at edge of bed, eat and ambulate to bathroom with assistance. Pts chief complaint is pain in left rib and hip which is being managed with pain medication and heat. Pt is resting in bed. No concerns at this time. Continue to monitor.
[2021-03-21 23:06] LABS: GLYCOHEMOGLOBIN (HGB A1C) 6.3 % (4.8-5.6)
--- NOTE | 2021-03-22 03:16 | NUR ---
DENIES CHEST PAIN. ON / PER HOME BASELINE. GIVEN MORPHINE FOR LEFT FLANK PAIN DUE TO SHINGLES. UP WITH SBA TO THE BSC. SR ON TELEMETRY.
[2021-03-22 03:19] LABS: HEMATOCRIT 31.8 % (37.0-47.0); HEMOGLOBIN 10.7 gm/dL (12.0-15.0); MCH 31.6 pg (26.0-34.0); MCHC 33.6 g/dL (28.0-37.0); MCV 94.1 fL (80.0-100.0); RBC 3.38 mil/uL (4.20-5.00); RDW 17.7 % (10.5-14.5); WBC 6.2 thou/uL (4.0-11.0)
[2021-03-22 04:25] LABS: CALCIUM 8.2 mg/dL (8.5-10.1); CREATININE 0.8 mg/dL (0.6-1.0); MAGNESIUM 1.6 mg/dL (1.8-2.4); POTASSIUM 4.2 mmol/L (3.5-5.1)
[2021-03-22 06:08] VITALS: BP 115/59
[2021-03-22 07:17] VITALS: BP 119/62
[2021-03-22] MEDS ORDERED: CLOPIDOGREL75 MG PO (08:47)
[2021-03-22] MEDS ORDERED: LIPITOR 20 MG T20 M1 PO (08:47)
[2021-03-22 09:46] VITALS: BP 99/64
--- NOTE | 2021-03-22 11:14 | NUR ---
Assumed care of pt this AM. Pt is A&O x4, on 3L NC, NSR on the monitor. Pt c/o pain on the lt side d/t previous shingles. Plan for discharge home today. Pt denying wanting to have HH. Pt states that she has no needs at home. bringing up O2 for pt to travel back home. IV & tele d/c'ed. Forms signed & posted in chart. Discharge education provided.
== END 2021-03-22 11:54 | disposition home or self-care (01) | DRG 280 ==
LOC: 2N 22:26
PROVIDERS: Internal Medicine Cardiovascular Disease; Nurse Practitioner Family; ADMIT Hospitalist; ATTEND Hospitalist
PROC: 4A023N7 Measurement of Cardiac Sampling and Pressure, Left Heart, Percutaneous Approach (ICD-10-PCS; principal; 2021-03-21)
PROC: B2111ZZ Fluoroscopy of Multiple Coronary Arteries using Low Osmolar Contrast (ICD-10-PCS; principal; 2021-03-21)
PROC: B2151ZZ Fluoroscopy of Left Heart using Low Osmolar Contrast (ICD-10-PCS; principal; 2021-03-21)
DX: I21.4 Non-ST elevation (NSTEMI) myocardial infarction (principal); J96.21 Acute and chronic respiratory failure with hypoxia; J44.1 Chronic obstructive pulmonary disease with (acute) exacerbation; K21.9 Gastro-esophageal reflux disease without esophagitis; R91.1 Solitary pulmonary nodule; M19.90 Unspecified osteoarthritis, unspecified site; I25.10 Atherosclerotic heart disease of native coronary artery without angina pectoris; M81.0 Age-related osteoporosis without current pathological fracture; Z90.49 Acquired absence of other specified parts of digestive tract; Z90.710 Acquired absence of both cervix and uterus; Z80.1 Family history of malignant neoplasm of trachea, bronchus and lung; Z82.49 Family history of ischemic heart disease and other diseases of the circulatory system; Z87.891 Personal history of nicotine dependence; Z88.2 Allergy status to sulfonamides; Z88.8 Allergy status to other drugs, medicaments and biological substances; Z91.040 Latex allergy status; Z98.42 Cataract extraction status, left eye; Z98.41 Cataract extraction status, right eye; Z99.81 Dependence on supplemental oxygen; Z79.899 Other long term (current) drug therapy
CPT/HCPCS: 10081

== ENCOUNTER 2021-03-26 16:02 | Inpatient (IN) | payer OTHER ==
[~2021-03-26] VITALS: Ht 162.6 cm; Wt 62.1 kg
[~2021-03-26 16:02] MED LIST changes: +CARAFATE 1 GM TA1 G1 PO; +CLOPIDOGREL75 MG PO; +FUROSEMIDE 20 M20 MG PO; +LIPITOR 20 MG T20 M1 PO; +PERCOCET 10-321 EAC1 PO; +POTASSIUM600 MG PO; +TESSALON PERLE100 MG PO
[2021-03-26 16:03] VITALS: BP 113/58
[2021-03-26 17:01] LABS: HEMATOCRIT 32.3 % (37.0-47.0); HEMOGLOBIN 10.6 gm/dL (12.0-15.0); MCHC 32.9 g/dL (28.0-37.0); MCV 94.1 fL (80.0-100.0); PLATELET COUNT 388 thou/uL (150-400); RBC 3.43 mil/uL (4.20-5.00); RDW 17.4 % (10.5-14.5); WBC 8.8 thou/uL (4.0-11.0)
[2021-03-26 17:10] LABS: CALCIUM 8.2 mg/dL (8.5-10.1); CREATININE 0.7 mg/dL (0.6-1.0); POTASSIUM 3.6 mmol/L (3.5-5.1)
[2021-03-26 17:20] LABS: ALBUMIN 2.4 g/dL (3.4-5.0); TOTAL BILIRUBIN 0.3 mg/dL (0.2-1.0); TOTAL PROTEIN 8.3 g/dL (6.4-8.2)
[2021-03-26 17:34] LABS: ABSOLUTE NEUTROPHILS 7.7 thou/uL (1.4-8.2)
[2021-03-26 17:35] LABS: ANISOCYTOSIS 1+
[2021-03-27 06:00] VITALS: BP 91/47
[2021-03-27 07:01] LABS: HEMOGLOBIN 9.9 gm/dL (12.0-15.0); MCHC 34.3 g/dL (28.0-37.0); MCV 93.4 fL (80.0-100.0); RBC 3.1 mil/uL (4.20-5.00); RDW 17.4 % (10.5-14.5); WBC 9.9 thou/uL (4.0-11.0)
[2021-03-27 07:17] LABS: CALCIUM 7.9 mg/dL (8.5-10.1); CREATININE 0.5 mg/dL (0.6-1.0); POTASSIUM 3.7 mmol/L (3.5-5.1)
--- NOTE | 2021-03-27 08:23 | EKG ---
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 HAMILTON : 1945 Requested By: Trent White Order Number: [id number] MD: Nikita Najera Measurements Intervals [place] Rate: 109 P: 49 KS: 135 QRS: 20 QRSD: 63 T: 147 QT: 392 QTc: 529 Interpretive Statements Sinus tachycardia Nonspecific T abnrm, anterolateral leads Baseline wander in lead(s) V4 Compared to ECG 03/21/2021 07:48:34 Sinus rhythm no longer present T-wave abnormality no longer present Electronically Signed On 03-27-2021 8:22:50 HOUSE DETECTIVE by Nikita Najera [email or web address] <ELECTRONICALLY SIGNED> By: Nikita Najera MD, FACC 03/27/21 0822 161 12 Nikita Najera MD, FAC /EPI
[2021-03-27 11:38] VITALS: BP 111/56
[2021-03-27 19:31] VITALS: BP 113/60
[2021-03-27 23:27] VITALS: BP 109/55
[2021-03-28 03:41] VITALS: BP 116/57
--- NOTE | 2021-03-28 04:37 | NUR ---
PT ADMITTED TO ROOM 207 ON 3L/NC, IV FLUIDS INFUSING, PRN PAIN MEDS GIVEN FOR NERVE PAIN FROM SHINGLES, VSS, ORIENTED TO ROOM AND UNIT, WILL CON'T TO MONITOR PER PPOC.
[2021-03-28 05:00] LABS: CALCIUM 7.8 mg/dL (8.5-10.1); CREATININE 0.6 mg/dL (0.6-1.0); POTASSIUM 3.9 mmol/L (3.5-5.1)
[2021-03-28 05:01] LABS: HEMATOCRIT 28.9 % (37.0-47.0); HEMOGLOBIN 9.6 gm/dL (12.0-15.0); MCH 31.4 pg (26.0-34.0); MCHC 33.2 g/dL (28.0-37.0); MCV 94.5 fL (80.0-100.0); RBC 3.06 mil/uL (4.20-5.00); RDW 17.7 % (10.5-14.5); WBC 10.1 thou/uL (4.0-11.0)
[2021-03-28 07:42] VITALS: BP 131/68
[2021-03-28 11:43] VITALS: BP 116/61
--- NOTE | 2021-03-28 12:59 | NUR ---
PATIENT ADMITTED FOR SOA; PNEUMONIA, NSTEMI. CHART REIVEWED AND DISCUSSED CASE WITH CARE TEAM. CM MET WITH PT THIS DAY. CM ROLE INTRODUCED. PT REPORTS SHE LIVES AT HOME WITH HER . REGISTRAR ASSISTANT PT INDEPENDENT WITH ADLS AND MOBILITY AND WITHOUT USE OF ASSISTIVE DEVICE. SHE REPORTS SHE HAS COMPLETED PULM REHAB OUTPT. SHE REPORTS HER HAS [facility] AND HAD [facility] HH IN THE PAST WHICH SERVICED [facility] AT THAT TIME. HH LIST GIVEN TO PT TO REVIEW. CONFIRMED PTS PCP AND PRIMARY CONTACT. WILL AWAIT CHOSEN HH CHOICE AND SEND REFFERALS AT THAT TIME. CM FOLLOWING.
[2021-03-28 15:32] VITALS: BP 117/50
--- NOTE | 2021-03-28 16:34 | NUR ---
CM UNABLE TO FIND HH GIVEN THE AREA IN WHICH THE STATE PT LIVES. PT AGREED TO F/U WITH PCP SAYDA LINDSEY.
--- NOTE | 2021-03-28 19:25 | NUR ---
ASSESSMENT CHARTED - MEDS PER MAY - IV FLUIDS D/C'D THIS AM. NEW IV PLACED FOR ABX'S - UP AD MARITZA IN ROOM NOW THAT IV COMPLETED. GIVEN PAIN MEDS X 2 DOSES FOR CO'S OF NERVE PAIN WHERE SHINGLES WERE. MEDS WITH MOD EFFECT. NO CO'S OF NAUSEA. PT TO GO HOME TOMORROW. NO CO'S AT THE PRESENT TIME.
[2021-03-28 19:55] VITALS: BP 143/65
[2021-03-29 03:31] VITALS: BP 151/81
[2021-03-29 07:21] VITALS: BP 153/75
--- NOTE | 2021-03-29 07:59 | NUR ---
pt resting quietly in room, prn pain meds given as charted for shingles pain, vss, up in room adlib, report given to next shift to con't ppoc.
[2021-03-29 11:07] VITALS: BP 149/74
[2021-03-29 15:08] VITALS: BP 142/70
--- NOTE | 2021-03-29 19:38 | NUR ---
ASSESSMENT CHARTED - MEDS PER MAY - [place] DIET AND FLUIDS. NO CO'S NASUEA. GIVEN HYDROCODONE X 2 DOSES FOR CO'S OF PAIN TO LEFT FLANK WITH MOD EFFECT. UP IN ROOM TO BATHROOM WITH USE OF WALKER. STEADY ON FEET. PT WITH OCCASSIONAL COUGH - WHEEZY THIS AM. NO CO'S AT THE PRESENT TIME.
[2021-03-29 20:25] VITALS: BP 150/69
[2021-03-30 04:26] LABS: CALCIUM 8.2 mg/dL (8.5-10.1); CREATININE 0.7 mg/dL (0.6-1.0); HEMATOCRIT 27.1 % (37.0-47.0); HEMOGLOBIN 9.2 gm/dL (12.0-15.0); MCH 31.9 pg (26.0-34.0); MCHC 33.9 g/dL (28.0-37.0); MCV 93.8 fL (80.0-100.0); POTASSIUM 3.8 mmol/L (3.5-5.1); RBC 2.89 mil/uL (4.20-5.00); RDW 17.4 % (10.5-14.5); WBC 7.1 thou/uL (4.0-11.0)
--- NOTE | 2021-03-30 04:46 | NUR ---
Pt. rested quietly at intervals during the night when checked on during frequent rounds. She c/o right flank pain and po pain meds given (see emar) with some relief noted. Up to the bathroom with walker.
[2021-03-30 05:22] VITALS: BP 178/81
[2021-03-30 07:30] VITALS: BP 116/66; BP 160/76
[2021-03-30 12:00] VITALS: BP 175/97
[2021-03-30 13:32] VITALS: BP 175/97
[2021-03-30] MEDS ORDERED: CEFDINIR300 MG PO (13:41)
[2021-03-30] MEDS ORDERED: PREDNISONE 10 M10 M1 PO (13:41)
--- NOTE | 2021-03-30 14:14 | NUR ---
PATIENT DISCHARGED HOME, NO QUESTIONS OR CONCERNS AT TIME OF DC. IV AND TELE REMOVED. TAKEN OUT BY WHEELCHAIR WITH STAFF TO [employer].
== END 2021-03-30 14:15 | disposition home or self-care (01) | DRG 871 ==
LOC: ER 16:02 → 2N 18:37 → EROBS 18:37 → 2N 03-27 20:04
PROVIDERS: Emergency Medicine; ADMIT Hospitalist; ATTEND Hospitalist
DX: A41.9 Sepsis, unspecified organism (principal); J18.9 Pneumonia, unspecified organism; J96.21 Acute and chronic respiratory failure with hypoxia; J44.1 Chronic obstructive pulmonary disease with (acute) exacerbation; J44.0 Chronic obstructive pulmonary disease with (acute) lower respiratory infection; Z20.822 Contact with and (suspected) exposure to COVID-19; M19.90 Unspecified osteoarthritis, unspecified site; K21.9 Gastro-esophageal reflux disease without esophagitis; M81.0 Age-related osteoporosis without current pathological fracture; I25.10 Atherosclerotic heart disease of native coronary artery without angina pectoris; K90.0 Celiac disease; R53.81 Other malaise; R91.1 Solitary pulmonary nodule; Z98.42 Cataract extraction status, left eye; Z98.41 Cataract extraction status, right eye; Z90.49 Acquired absence of other specified parts of digestive tract; I25.2 Old myocardial infarction; Z88.2 Allergy status to sulfonamides; Z88.8 Allergy status to other drugs, medicaments and biological substances; Z91.040 Latex allergy status; Z87.891 Personal history of nicotine dependence
CPT/HCPCS: 10081

== ENCOUNTER 2021-05-17 14:06 | Inpatient (IN) | payer OTHER ==
[~2021-05-17] VITALS: Ht 162.6 cm; Wt 47.2 kg
[~2021-05-17 14:06] MED LIST changes: +CEFDINIR300 MG PO
[2021-05-17 19:08] VITALS: BP 178/104
[2021-05-17 21:01] LABS: HEMATOCRIT 28.2 % (37.0-47.0); HEMOGLOBIN 9.7 gm/dL (12.0-15.0); MCH 32.2 pg (26.0-34.0); MCHC 34.4 g/dL (28.0-37.0); MCV 93.5 fL (80.0-100.0); RBC 3.01 mil/uL (4.20-5.00); RDW 17.1 % (10.5-14.5); WBC 7.8 thou/uL (4.0-11.0)
[2021-05-17 21:18] LABS: CALCIUM 8.2 mg/dL (8.5-10.1); CREATININE 0.7 mg/dL (0.6-1.0)
[2021-05-17 21:25] LABS: ALBUMIN 2.1 g/dL (3.4-5.0); TOTAL BILIRUBIN 0.5 mg/dL (0.2-1.0); TOTAL PROTEIN 10.7 g/dL (6.4-8.2)
[2021-05-17 22:46] LABS: BE(vivo) 5.8 mmol/L (-2 to +3); HCO3 31.7 mmol/L (22.0-26.0); PCO2 52.9 mmHg (35.0-45.0); PO2 84.2 mmHg (80.0-100.0); pH 7.396 (7.360-7.450); sO2 96.1 % (92.0-98.0)
[2021-05-18] VITALS (30 sets, daily range): BP systolic 97–198; BP diastolic 54–105
[2021-05-18 03:31] LABS: HEMATOCRIT 28.2 % (37.0-47.0); HEMOGLOBIN 10.4 gm/dL (12.0-15.0); MCHC 36.7 g/dL (28.0-37.0); MCV 92.7 fL (80.0-100.0); RBC 3.04 mil/uL (4.20-5.00); RDW 16.7 % (10.5-14.5); WBC 8.3 thou/uL (4.0-11.0)
[2021-05-18 03:55] LABS: ALBUMIN 2.3 g/dL (3.4-5.0); CALCIUM 8.7 mg/dL (8.5-10.1); CREATININE 0.8 mg/dL (0.6-1.0); POTASSIUM 3.8 mmol/L (3.5-5.1); TOTAL BILIRUBIN 0.2 mg/dL (0.2-1.0); TOTAL PROTEIN 11.3 g/dL (6.4-8.2)
[2021-05-19] VITALS (70 sets, daily range): BP systolic 81–194; BP diastolic 25–109
[2021-05-19 06:42] LABS: HEMATOCRIT 26.6 % (37.0-47.0); HEMOGLOBIN 8.9 gm/dL (12.0-15.0); MCH 31.5 pg (26.0-34.0); MCHC 33.5 g/dL (28.0-37.0); RBC 2.83 mil/uL (4.20-5.00); RDW 16.8 % (10.5-14.5); WBC 7.5 thou/uL (4.0-11.0)
[2021-05-19 06:55] LABS: CALCIUM 7.8 mg/dL (8.5-10.1); POTASSIUM 3.6 mmol/L (3.5-5.1)
[2021-05-19 14:42] LABS: BE(vivo) 3.5 mmol/L (-2 to +3); PCO2 42.3 mmHg (35.0-45.0); pH 7.439 (7.360-7.450); sO2 89.6 % (92.0-98.0)
[2021-05-19 16:02] LABS: BE(vivo) 2.1 mmol/L (-2 to +3); HCO3 27.4 mmol/L (22.0-26.0); PCO2 46.1 mmHg (35.0-45.0); PO2 91.3 mmHg (80.0-100.0); pH 7.392 (7.360-7.450); sO2 96.9 % (92.0-98.0)
[2021-05-20] VITALS (52 sets, daily range): BP systolic 131–191; BP diastolic 61–97
[2021-05-20 01:06] LABS: HBsAG-EMPLOYEE EXPOSURE Negative (Negative); HCV AB-EMPLOYEE EXPOSURE <0.1 (0.0-0.9)
[2021-05-20 04:54] LABS: CALCIUM 7.5 mg/dL (8.5-10.1); CREATININE 0.8 mg/dL (0.6-1.0); MAGNESIUM 2.2 mg/dL (1.8-2.4); PHOSPHORUS 3.7 mg/dL (2.6-4.7)
[2021-05-20 05:07] LABS: ABSOLUTE NEUTROPHILS 6.7 thou/uL (1.4-8.2); BASOPHILS 0.2 % (0.0-2.0); HEMATOCRIT 25.1 % (37.0-47.0); HEMOGLOBIN 8.6 gm/dL (12.0-15.0); LYMPHOCYTES 2.5 % (24.0-44.0); MCH 32.5 pg (26.0-34.0); MCHC 34.1 g/dL (28.0-37.0); MCV 95.5 fL (80.0-100.0); MONOCYTES 5.5 % (1.0-8.0); PLATELET COUNT 331 thou/uL (150-400); POLYS 91.8 % (36.0-66.0); RBC 2.63 mil/uL (4.20-5.00); RDW 16.8 % (10.5-14.5); WBC 7.3 thou/uL (4.0-11.0)
[2021-05-20 09:42] LABS: BE(vivo) 3.6 mmol/L (-2 to +3); PCO2 41.7 mmHg (35.0-45.0); PO2 98.2 mmHg (80.0-100.0); pH 7.445 (7.360-7.450); sO2 97.7 % (92.0-98.0)
--- NOTE | 2021-05-20 12:01 | 2DMMODE ---
[facility] [place] [address] 2 D/M-MODE ECHOCARDIOGRAM Name: HATTIE STRAUSS Room #: 246-P ADM IN M.R.#: [id number] Admission: 05/17/21 Attend Phys: Pollo Marshall MD Discharge: Date of : 43 Report #: [id number] THIS REPORT FOR: cc: Zakia Malagon Elizabeth DO Santiago, Patrick MD [facility] ~ APPROVED REPORT Study performed: 05/20/2021 11:12:12 EXAM: Limited 2D, Doppler, and color-flow Echocardiogram Patient Location: ICU Room #: 246 Status: routine BSA: 1.47 HR: 68 bpm BP: 177/86 mmHg Rhythm: NSR Other Information Study Quality: Good/on vent Indications Dyspnea Hx: CAD, NSTEMI, Cardiomyopathy (40-45% on 02/2021). COPD. 2D Dimensions RVDd: 32.76 mm Volumes Left Atrial Volume (Systole) Single Plane 4CH: 33.43 mL Single Plane 2CH: 30.92 mL LA ESV Index: 23.00 mL/m2 Aortic Valve AoV Peak Vipul.: 1.32 m/s AO Peak Gr.: 6.93 mmHg Mitral Valve E/A Ratio: 0.7 MV Decel. Time: 287.18 ms MV E Max Vipul.: 0.71 m/s MV A Vipul.: 0.95 m/s MV PHT: 83.28 ms [facility] [address] [place] [address] 2 D/M-MODE ECHOCARDIOGRAM Name: HATTIE STRAUSS Room #: 246-P ADM IN .R.#: [id number] Admission: 05/17/21 Attend Phys: Pollo Marshall, Discharge: Date of : 43 Report #: [id number] Pulmonary Valve PV Peak Vipul.: 0.99 m/s PV Peak Gr.: 3.91 mmHg Tricuspid Valve TR Peak Vipul.: 3.02 m/s RAP Estimate: 10.00 mmHg TR Peak Gr.: 36.43 mmHg PA Pressure: 46.00 mmHg Left Ventricle The left ventricle is normal size. There is normal LV segmental wall motion. There is normal left ventricular wall thickness. Left ventricular systolic function is normal. LVEF is 5055%. Mild diastolic dysfunction is present (impaired relaxation pattern). Right Ventricle The right ventricle is normal size. The right ventricular systolic function is normal. Atria The left atrium size is normal. The right atrium size is normal. Aortic Valve The aortic valve is normal in structure. No aortic regurgitation is present. There is no aortic valvular stenosis. Mitral Valve The mitral valve is normal in structure. Mild mitral annular calcification. Trace mitral regurgitation. Tricuspid Valve The tricuspid valve is normal in structure. Mild tricuspid regurgitation. Estimated PAP is 45mmHg. Pulmonic Valve The pulmonary valve is normal in structure. Trace pulmonic regurgitation. Great Vessels The aortic root is normal in size. IVC is normal in size and collapses <50% with inspiration. Pericardium There is no pericardial effusion. [facility] [address] [place] [address] 2 D/M-MODE ECHOCARDIOGRAM Name: CARLOS AHATTIE Room #: 246-P [facility]#: [id number] Admission: 05/17/21 Attend Phys: Pollo Marshall, Discharge: Date of : 43 Report #: [id number] <Conclusion> Normal left nuclear size/wall thickness central ejection fraction 5055% Grade 1 diastolic dysfunction Normal right ventricle size/function Normal atrial size Normal aortic valve structure and function Mild mitral annular calcification Trace mitral valve insufficiency Mild tricuspid valve insufficiency Pulmonary systolic pressure estimated 45 mmHg No pericardial effusion Normal aortic root size. <ELECTRONICALLY SIGNED> By: Nikita Najera MD, FACC 05/20/21 1200 1200 1200 Nikita Najera MD, FACC /INF
[2021-05-21] VITALS (54 sets, daily range): BP systolic 149–199; BP diastolic 70–108
[2021-05-21 04:32] LABS: HEMATOCRIT 40.7 % (37.0-47.0); MCH 30.6 pg (26.0-34.0); MCHC 31.7 g/dL (28.0-37.0); MCV 96.6 fL (80.0-100.0); RBC 4.22 mil/uL (4.20-5.00); RDW 17.4 % (10.5-14.5); WBC 6.6 thou/uL (4.0-11.0)
[2021-05-21 04:35] LABS: HEMOGLOBIN 12.9 gm/dL (12.0-15.0)
[2021-05-21 04:37] LABS: CALCIUM 7.7 mg/dL (8.5-10.1); CREATININE 0.7 mg/dL (0.6-1.0); POTASSIUM 4.3 mmol/L (3.5-5.1)
[2021-05-22] VITALS (52 sets, daily range): BP systolic 103–195; BP diastolic 47–112
[2021-05-22 04:33] LABS: HEMATOCRIT 26.2 % (37.0-47.0); MCH 32.1 pg (26.0-34.0); MCHC 33.5 g/dL (28.0-37.0); MCV 95.8 fL (80.0-100.0); RBC 2.74 mil/uL (4.20-5.00); RDW 16.9 % (10.5-14.5)
[2021-05-22 04:34] LABS: ALBUMIN 1.8 g/dL (3.4-5.0); ANION GAP 3 mmol/L (7-16); BUN 23 mg/dL (7-18); CALCIUM 8.1 mg/dL (8.5-10.1); CHLORIDE 101 mmol/L (98-107); CO2 29 mmol/L (21-32); CREATININE 0.7 mg/dL (0.6-1.0); GLUCOSE 130 mg/dL (74-106); POTASSIUM 4.1 mmol/L (3.5-5.1); SGOT 31 U/L (15-37); SGPT 58 U/L (14-59); SODIUM 133 mmol/L (136-145); TOTAL BILIRUBIN < 0.1 mg/dL (0.2-1.0); TOTAL PROTEIN 8.7 g/dL (6.4-8.2)
[2021-05-22 04:36] LABS: HEMOGLOBIN 8.8 gm/dL (12.0-15.0); PLATELET COUNT 345 thou/uL (150-400)
[2021-05-22 04:47] LABS: BE(vivo) 2.3 mmol/L (-2 to +3); HCO3 27.4 mmol/L (22.0-26.0); PO2 88.2 mmHg (80.0-100.0); pH 7.403 (7.360-7.450); sO2 96.7 % (92.0-98.0)
[2021-05-22 09:44] LABS: ABSOLUTE NEUTROPHILS 7.6 thou/uL (1.4-8.2); ANISOCYTOSIS 1+; ATYPICAL LYMPHS 1 %; NUCLEATED RBCS 1 /100WBC; POIKILOCYTOSIS SLIGHT
[2021-05-22 09:45] LABS: HYPOCHROMASIA SLIGHT; POLYCHROMASIA SLIGHT
[2021-05-23] VITALS (48 sets, daily range): BP systolic 120–168; BP diastolic 52–86
[2021-05-23 05:26] LABS: BASOPHILS 0.1 % (0.0-2.0); HEMATOCRIT 26.6 % (37.0-47.0); HEMOGLOBIN 8.7 gm/dL (12.0-15.0); LYMPHOCYTES 5.3 % (24.0-44.0); MCH 31.5 pg (26.0-34.0); MCHC 32.9 g/dL (28.0-37.0); MCV 95.8 fL (80.0-100.0); MONOCYTES 8.4 % (1.0-8.0); PLATELET COUNT 319 thou/uL (150-400); POLYS 86.2 % (36.0-66.0); RBC 2.77 mil/uL (4.20-5.00); RDW 17.4 % (10.5-14.5); WBC 9.3 thou/uL (4.0-11.0)
[2021-05-23 05:51] LABS: CALCIUM 7.5 mg/dL (8.5-10.1); CREATININE 0.7 mg/dL (0.6-1.0)
[2021-05-24] VITALS (52 sets, daily range): BP systolic 107–215; BP diastolic 53–131
[2021-05-24 04:54] LABS: BE(vivo) 4.7 mmol/L (-2 to +3); HCO3 29.3 mmol/L (22.0-26.0); PCO2 43.7 mmHg (35.0-45.0); PO2 92.9 mmHg (80.0-100.0); pH 7.444 (7.360-7.450); sO2 97.3 % (92.0-98.0)
[2021-05-24 05:44] LABS: ALBUMIN 1.6 g/dL (3.4-5.0); ANION GAP 2 mmol/L (7-16); BUN 29 mg/dL (7-18); CALCIUM 7.3 mg/dL (8.5-10.1); CHLORIDE 100 mmol/L (98-107); CO2 32 mmol/L (21-32); CREATININE 0.6 mg/dL (0.6-1.0); GLUCOSE 146 mg/dL (74-106); SGOT 14 U/L (15-37); SGPT 37 U/L (30-65); SODIUM 134 mmol/L (136-145); TOTAL BILIRUBIN < 0.1 mg/dL (0.2-1.0); TOTAL PROTEIN 7.8 g/dL (6.4-8.2)
[2021-05-24 06:13] LABS: HEMATOCRIT 25.3 % (37.0-47.0); HEMOGLOBIN 8.4 gm/dL (12.0-15.0); MCHC 33.3 g/dL (28.0-37.0); MCV 96.1 fL (80.0-100.0); PLATELET COUNT 307 thou/uL (150-400); RBC 2.63 mil/uL (4.20-5.00); RDW 17.1 % (10.5-14.5); WBC 9.2 thou/uL (4.0-11.0)
[2021-05-24 08:56] LABS: ABSOLUTE NEUTROPHILS 7.8 thou/uL (1.4-8.2)
[2021-05-24 08:57] LABS: ANISOCYTOSIS 1+; POLYCHROMASIA 1+
[2021-05-24 09:02] LABS: BE(vivo) 7.6 mmol/L (-2 to +3); HCO3 32.1 mmol/L (22.0-26.0); PCO2 45.5 mmHg (35.0-45.0); PO2 82.3 mmHg (80.0-100.0); pH 7.467 (7.360-7.450); sO2 96.6 % (92.0-98.0)
[2021-05-25] VITALS (79 sets, daily range): BP systolic 99–180; BP diastolic 58–109
[2021-05-25 06:09] LABS: HEMATOCRIT 30.8 % (37.0-47.0); HEMOGLOBIN 10.1 gm/dL (12.0-15.0); MCHC 32.7 g/dL (28.0-37.0); MCV 94.7 fL (80.0-100.0); PLATELET COUNT 380 thou/uL (150-400); RBC 3.25 mil/uL (4.20-5.00); RDW 17.5 % (10.5-14.5); WBC 13.9 thou/uL (4.0-11.0)
[2021-05-25 06:28] LABS: CALCIUM 8.1 mg/dL (8.5-10.1); CREATININE 0.6 mg/dL (0.6-1.0); POTASSIUM 4.3 mmol/L (3.5-5.1); TOTAL PROTEIN 9.2 g/dL (6.4-8.2)
[2021-05-25 06:45] LABS: TOTAL BILIRUBIN 0.1 mg/dL (0.2-1.0)
[2021-05-25 07:55] LABS: BE(vivo) 6.5 mmol/L (-2 to +3); HCO3 31.3 mmol/L (22.0-26.0); PCO2 45.9 mmHg (35.0-45.0); PO2 64.5 mmHg (80.0-100.0); pH 7.452 (7.360-7.450); sO2 93.4 % (92.0-98.0)
[2021-05-25 08:48] LABS: ABSOLUTE NEUTROPHILS 10.4 thou/uL (1.4-8.2); ANISOCYTOSIS 1+
[2021-05-25 08:51] LABS: ATYPICAL LYMPHS 4 %
[2021-05-26] VITALS (35 sets, daily range): BP systolic 107–198; BP diastolic 46–104
[2021-05-26 02:42] LABS: ABSOLUTE NEUTROPHILS 9.7 thou/uL (1.4-8.2); EOSINOPHILS 0.1 % (0.0-3.0); HEMATOCRIT 29.3 % (37.0-47.0); HEMOGLOBIN 9.9 gm/dL (12.0-15.0); MCH 31.6 pg (26.0-34.0); MCHC 33.7 g/dL (28.0-37.0); PLATELET COUNT 326 thou/uL (150-400); POLYS 88.9 % (36.0-66.0); RBC 3.12 mil/uL (4.20-5.00); WBC 10.9 thou/uL (4.0-11.0)
[2021-05-26 02:51] LABS: ALBUMIN 1.9 g/dL (3.4-5.0); CALCIUM 7.9 mg/dL (8.5-10.1); CREATININE 0.7 mg/dL (0.6-1.0); POTASSIUM 4.5 mmol/L (3.5-5.1); TOTAL BILIRUBIN 0.2 mg/dL (0.2-1.0); TOTAL PROTEIN 8.7 g/dL (6.4-8.2)
[2021-05-26 05:07] LABS: HCO3 32.8 mmol/L (22.0-26.0); PCO2 53.6 mmHg (35.0-45.0); PO2 85.5 mmHg (80.0-100.0); pH 7.405 (7.360-7.450); sO2 96.3 % (92.0-98.0)
== END 2021-05-26 11:33 | DRG 870 ==
LOC: 3W 14:06 → ICU 17:40
PROVIDERS: Hospitalist; Internal Medicine; Internal Medicine Pulmonary Disease; Nurse Practitioner Family; Pediatrics; ADMIT Internal Medicine; ATTEND Internal Medicine
PROC: 5A09357 Assistance with Respiratory Ventilation, Less than 24 Consecutive Hours, Continuous Positive Airway Pressure (ICD-10-PCS; principal; 2021-05-18)
PROC: 5A09357 Assistance with Respiratory Ventilation, Less than 24 Consecutive Hours, Continuous Positive Airway Pressure (ICD-10-PCS; 2021-05-19)
PROC: 0BH17EZ Insertion of Endotracheal Airway into Trachea, Via Natural or Artificial Opening (ICD-10-PCS; 2021-05-19)
PROC: 5A1955Z Respiratory Ventilation, Greater than 96 Consecutive Hours (ICD-10-PCS; 2021-05-19)
PROC: 5A09457 Assistance with Respiratory Ventilation, 24-96 Consecutive Hours, Continuous Positive Airway Pressure (ICD-10-PCS; 2021-05-25)
DX: A41.9 Sepsis, unspecified organism (principal); J69.0 Pneumonitis due to inhalation of food and vomit; J96.21 Acute and chronic respiratory failure with hypoxia; E43 Unspecified severe protein-calorie malnutrition; J96.22 Acute and chronic respiratory failure with hypercapnia; J44.1 Chronic obstructive pulmonary disease with (acute) exacerbation; E87.1 Hypo-osmolality and hyponatremia; I42.9 Cardiomyopathy, unspecified; Z68.1 Body mass index [BMI] 19.9 or less, adult; M19.90 Unspecified osteoarthritis, unspecified site; M40.209 Unspecified kyphosis, site unspecified; R53.81 Other malaise; D64.9 Anemia, unspecified; R73.9 Hyperglycemia, unspecified; E88.09 Other disorders of plasma-protein metabolism, not elsewhere classified; R91.1 Solitary pulmonary nodule; Z66 Do not resuscitate; Z90.710 Acquired absence of both cervix and uterus; Z90.49 Acquired absence of other specified parts of digestive tract; Z87.891 Personal history of nicotine dependence; Z88.2 Allergy status to sulfonamides; Z88.6 Allergy status to analgesic agent; Z91.040 Latex allergy status; I25.2 Old myocardial infarction; Z98.42 Cataract extraction status, left eye; Z98.41 Cataract extraction status, right eye; Z99.81 Dependence on supplemental oxygen
CPT/HCPCS: 10078; 10779; 27000; 50455